=== PATIENT | female | born 1940 | race Caucasian/White ===

== ENCOUNTER 2019-05-12 16:48 | Emergency (ER) | payer MEDICARE, OTHER, SELFPAY ==
--- NOTE | ~2019-05-12 | CT_ITS ---
EXAMINATION: CT facial bones w con INDICATION: Cellulitis TECHNIQUE: Computed tomographic images of the facial bones were obtained after the administration of 75 cc of Omnipaque 350 intravenous contrast. The dose-length product (DLP) was 289.75 mGy-cm. Automat ed exposure control and iterative reconstruction technique were employed. COMPARISON: None FINDINGS: There is preseptal left periorbital soft tissue swelling. The left globe is normal. There i s no intraorbital mass or swelling. No abscess is identified. The paranasal sinuses and mastoid air c ells are well aerated. The facial bones are normal. IMPRESSION: 1. Left periorbital cellulitis without evidence of abscess. Normal left globe and orbit. Reviewed, dictated and finalized at location A. STEMMER IMPRESSION: 1. Left periorbital cellulitis without evidence of abscess. Normal left globe a nd orbit.
[2019-05-12 16:50] VITALS: BP 122/75; PULSE 118; RESP 20; TEMP 38.8; O2SAT 97
--- NOTE | 2019-05-12 16:58 | ED.ALLEREA ---
HPI - Allergic Reaction General Chief complaint: Allergic Reaction Stated complaint: facial swelling Time Seen by Provider: 05/12/19 16:57 Source: patient Mode of arrival: ambulatory Limitations: no limitations History of Present Illness HPI narrative: The pt is an 78 y/o female who presents to the ED with c/o lt facial swelling that began this morning. The pt states that she received a shingles shot 4 days ago. The following day, she went to an Urgent Care after developing fever, chills, and sweats, where she tested negative for the flu and was told that her sx could be due to a response to the shingles shot or an URI. A couple of days ago, the pt started taking a herbal supplement called Resistol that she bought online. She developed facial swelling this morning, which she has been treating with cold packs. The pt reports facial erythema, nasal congestion, fever, sweats, lower ABD pain, loose stools, facial itchiness, and pain with eye movement, but denies oral pain, dysuria, urinary frequency, urinary retention, sinus pressure, sinus drainage, sore throat, ear pressure, or cough. The pt notes that her ABD sx are probably due to her PMHx of IBS. MD complaint: facial swelling Onset (ago): hour(s) (this morning) Symptoms: other (facial erythema, nasal congestion, fever, sweats, lower ABD pain, loose stools, facial itchiness, pain with eye movement) Treatment prior to arrival: other (Resistol, cold packs) Related Data Allergies Allergy/AdvReac Type Severity Reaction Status Date / Time No Known Allergies Allergy Verified 05/12/19 17:00 Review of Systems Review of Systems: All systems reviewed & are unremarkable except as noted in HPI and below Constitutional: Constitutional: Reports fever(s) and Reports other (sweats) Eyes: Eyes: Reports other (pain with eye movement) ENT: Reports nasal congestion, Denies sinus pressure, Denies sore throat and Denies other (oral pain, sinus drainage, ear pressure) Respiratory: Respiratory: Denies cough Gastrointestinal: Gastrointestinal: Reports abdominal pain (lower) and Reports loose stools Genitourinary: Genitourinary: Denies nocturia, Denies dysuria and Denies other (urinary retention) Allergic/Immunologic: Allergic/Immunologic: Reports other (lt facial swelling, facial erythema, facial itchiness) PMFSH Past Medical History Medical History (Updated 05/12/19 @ 18:49 by Josh Sun MD) Anxiety Depression Hyperlipidemia Hypertension Irritable bowel syndrome Renal disease Surgical History Surgical History (Updated 05/12/19 @ 17:22 by Dina Tony) History of orthopedic surgery Hx of cholecystectomy Social History Social History (Updated 05/12/19 @ 17:22 by Dina Tony) Smoking status: Never smoker Exam Const: General: healthy appearing and no acute distress Nutritional Appearance: well nourished HENMT: Mouth: Yes lip normal and Yes moist mucous membranes Eyes: Conjunctivae: conjunctivae normal Pupils: Equal, round and reactive pupils present EOM: EOMs intact bilaterally Resp: Effort & Inspection: normal respiratory effort Auscultation: clear to auscultation bilaterally Cardio: Rate: regular rate Rhythm: regular rhythm GI: GI Palp: Yes Soft to palpation and No Tenderness to palpation present (GI) Auscultation: normal bowel sounds Back/Spine/Pelvis: Back: other (full ROM) Skin: General skin exam: dry skin and other (warm) Other: erythema and induration around lt maxilla Neuro: General: patient oriented x3 Speech: normal speech Extrem: General: full ROM Psych: Mental Status: mental status grossly normal Affect: normal affect Course Vital Signs Vital signs: Vital Signs Temperature 38.8 C H 05/12/19 16:50 Pulse Rate 118 H 05/12/19 16:50 Respiratory Rate 20 05/12/19 16:50 Blood Pressure 122/75 05/12/19 16:50 Pulse Oximetry 97 05/12/19 16:50 Temperature 37.2 C 05/12/19 19:14 Pulse Rate 80 05/12/19 19:
[2019-05-12] MEDS: CLINDAMYCIN 600 MG/NS 50 ML 600 MG/50 ML PIGGYBACK 100 MG IVPB (17:30)
[2019-05-12 17:41] LABS: Basophils Percent Auto 0.4 % (0.2-1.2); Eosinophils Percent Auto 0.1 % (0-4.4); Hematocrit 42.5 % (37.0-47.0); Hemoglobin 13.9 g/dL (12.0-15.0); Immature Granulocyte Absolute 0.05 K/mm3 (0.00-0.031); Immature Granulocyte Percent A 0.4 % (0-0.5); Lymphocytes Absolute Auto 1.05 K/mm3 (0.9-3.2); Lymphocytes Percent Auto 9.3 % (18.3-44.2); Mean Corpuscular HGB Conc 32.7 g/dl (32-36); Mean Corpuscular Hemoglobin 30.2 pg (26-34); Mean Corpuscular Volume 92.2 fl (80-100); Mean Platelet Volume 9.7 fl (7.4-10.4); Monocytes Absolute Auto 1.1 K/mm3 (0.1-0.6); Monocytes Percent Auto 9.6 % (2.6-8.5); Neutrophils Absolute Auto 9.1 K/mm3 (1.3-6.7); Neutrophils Percent Auto 80.2 % (45.5-73.1); Platelet Count Result 199 k/mm3 (150-375); Red Blood Count 4.61 M/mm3 (4.2-5.4); Red Cell Distribution Width 13.1 % (11.5-14.5); White Blood Count 11.3 K/mm3 (4.5-10.0)
[2019-05-12 17:53] LABS: Blood Urea Nitrogen 16 mg/dL (7-17); Calcium 9.2 mg/dL (8.4-10.2); Carbon Dioxide 26 mmol/L (22-30); Chloride 98 mmol/L (98-107); Estimated CRCL calculation 40 ml/min; Estimated Glomerular Filt Rate > 60; Glucose 111 mg/dL (65-105); Potassium 4.2 mmol/L (3.4-5.0); Sodium 136 mmol/L (137-145)
[2019-05-12 19:14] VITALS: BP 120/88; PULSE 80; RESP 18; TEMP 37.2; O2SAT 98
--- NOTE | 2019-07-01 10:51 | PC.NURSE ---
LATE ENTRY This note is being entered to document information to the patient's record. The following information was omitted on 05/12/2019, by HUNG Dubon. Pt received clindamycin dose per order and completed 30 min after initiation.
== END 2019-05-12 19:16 | disposition home or self-care (01) ==
PROVIDERS: Emergency Provider Emergency Medicine
DX: L03.213 Periorbital cellulitis (principal); K58.9 Irritable bowel syndrome, unspecified; E78.5 Hyperlipidemia, unspecified; I10 Essential (primary) hypertension; N28.9 Disorder of kidney and ureter, unspecified
CPT/HCPCS: 36415; 70487; 80048; 85025; 96365; 99284; Q9967

== ENCOUNTER → 2021-01-15 11:19 | Outpatient (CLI) | payer MEDICARE, OTHER, SELFPAY ==
--- NOTE | ~2021-01-15 | MM_ITS ---
EXAMINATION: MM screening [facility] BI w rama HISTORY: Screening mammogram TECHNIQUE: Craniocaudal and mediolateral oblique 3-D tomosynthesis images were obtained and synthetic 2-D images were generated. CAD analysis was submitted and interpreted. COMPARISON: 01/01/2019, 12/29/2016, 12/05/2014 BREAST PARENCHYMAL COMPOSITION: The breasts are heterogeneously dense, which may obscure small masses . FINDINGS: There is no evidence of suspicious mass, calcification, or architectural distortion to sugg est malignancy in either breast. There has been no suspicious interval change. IMPRESSION: 1. No mammographic evidence of malignancy. 2. Recommend routine screening mammography in one year. BI-RADS Category 1: Negative Reviewed, dictated and finalized at location A.
== END ==
PROVIDERS: PCP Internal Medicine; Visit Provider Internal Medicine
DX: Z12.31 Encounter for screening mammogram for malignant neoplasm of breast (principal)
CPT/HCPCS: 77063; 77067

== ENCOUNTER 2021-06-30 13:55 | Emergency (ER) | payer MEDICARE, OTHER, SELFPAY ==
[2021-06-30] VITALS (12 sets, daily range): BP systolic 139–163; BP diastolic 84–92; PULSE 72–87; RESP 9–20; TEMP 36.8; O2SAT 97–99
--- NOTE | ~2021-06-30 | CT_ITS ---
EXAMINATION: CT brain wo con DATE: 06/30/2021 15:01 INDICATION: Dizziness TECHNIQUE: Computed tomography (CT) of the head was performed without intravenous contrast. Sagittal and coronal reconstructions were performed. The mA was adjusted according to patient size. Iterative reconstruction technique was employed. The dose-length product was 605.33 mGy-cm. COMPARISON: None FINDINGS: No acute intracranial hemorrhage, acute infarction or abnormal extra axial fluid collection. There is mild scattered white matter hypoattenuation consistent with chronic small vessel ischemic disease. V entricles are normal and symmetric. No mass/mass effect. The orbits, paranasal sinuses and mastoid ai r cells are normal. IMPRESSION: 1. Mild periventricular predominant white matter hypoattenuation consistent with chronic small vessel ischemic disease. No acute intracranial process. Reviewed, dictated and finalized at location B. IMPRESSION: 1. Mild periventricular predominant white matter hypoattenuation consistent wit h chronic small vessel ischemic disease. No acute intracranial process.
--- NOTE | 2021-06-30 14:07 | PC.NURSE ---
pt reporting hx of anxiety and being upset by a remark her made last night about him dying first . pt tearful in triage.
--- NOTE | 2021-06-30 14:31 | ECG_ITS ---
Measurements Intervals [place] Rate: 80 P: 23 MD: 152 QRS: -21 QRSD: 76 T: 17 QT: 351 QTc: 406 Interpretive Statements SINUS RHYTHM LOW QRS VOLTAGE IN PRECORDIAL LEADS [QRS DEFLECTION < 1.0 mV IN CHEST LEADS] POOR R-WAVE PROGRESSION, CANNOT RULE OUT OLD ANTEROSEPTAL MYOCARDIAL INFARCTION NO PREVIOUS ECG AVAILABLE FOR COMPARISON Electronically Signed On 06-30-2021 21:19:50 CDT by Lauren Thorne M.D.
[2021-06-30 14:50] LABS: Basophils Absolute Auto 0.1 K/mm3 (0.0-0.1); Basophils Percent Auto 0.9 % (0.2-1.2); Eosinophils Absolute Auto 0.2 K/mm3 (0-0.3); Eosinophils Percent Auto 2.1 % (0-4.4); Hematocrit 47.2 % (37.0-47.0); Immature Granulocyte Absolute 0.03 K/mm3 (0.00-0.031); Immature Granulocyte Percent A 0.3 % (0-0.5); Lymphocytes Absolute Auto 2.06 K/mm3 (0.9-3.2); Lymphocytes Percent Auto 22.5 % (18.3-44.2); Mean Corpuscular HGB Conc 31.8 g/dl (32-36); Mean Corpuscular Hemoglobin 30.3 pg (26-34); Mean Corpuscular Volume 95.4 fl (80-100); Mean Platelet Volume 9.3 fl (7.4-10.4); Monocytes Absolute Auto 0.8 K/mm3 (0.1-0.6); Monocytes Percent Auto 8.4 % (2.6-8.5); Neutrophils Percent Auto 65.8 % (45.5-73.1); Platelet Count Result 246 k/mm3 (150-375); Red Blood Count 4.95 M/mm3 (4.2-5.4); Red Cell Distribution Width 13.1 % (11.5-14.5); White Blood Count 9.2 K/mm3 (4.5-10.0)
[2021-06-30 15:03] LABS: Alanine Aminotransferase 22 U/L (4-35); Albumin Level 4.5 g/dL (3.5-5.1); Alkaline Phosphatase 70 U/L (38-126); Anion Gap 6 mmol/L (8-16); Aspartate Amino Transferase 30 U/L (14-36); Bilirubin,Total 0.6 mg/dL (0.2-1.3); Blood Urea Nitrogen 20 mg/dL (7-17); Calcium 9.3 mg/dL (8.4-10.2); Carbon Dioxide 29 mmol/L (22-30); Chloride 104 mmol/L (98-107); Estimated CRCL calculation 35 ml/min; Estimated Glomerular Filt Rate 60; Glucose 109 mg/dL (65-110); Potassium 3.9 mmol/L (3.4-5.0); Sodium 139 mmol/L (137-145)
[2021-06-30 15:14] LABS: NT Pro B Type Natriuretic Pept 143 pg/mL (5-100)
[2021-06-30 15:33] LABS: Troponin I < 0.012 ng/mL (0.000-0.034)
--- NOTE | 2021-06-30 16:38 | ED.GENADULT ---
HPI - General Adult General Chief complaint: Anxiety Stated complaint: dizzy Time Seen by Provider: 06/30/21 14:32 Source: patient Mode of arrival: ambulatory Limitations: no limitations History of Present Illness HPI narrative: 80-year-old with a history of hyperlipidemia, anxiety here with complaints of sudden onset of dizziness heaviness in her right side of her head. Patient states that she was driving along with her while she was taking a turn she felt sudden dizziness and heaviness in the chest. She states that she felt extremely anxious and did not feel right. Patient presently denies any chest pain, shortness of breath. She states her first lot of stress been going on in her life in the recent past. Onset (ago): hour(s) (1) Location: head Radiation: non-radiation Severity: moderate Quality: dull Pain Consistency: now resolved Relieving factors: none Exacerbating factors: none Associated symptoms: headaches Related Data Home Medications Medication Instructions Recorded Confirmed atorvastatin 06/30/21 valacyclovir 06/30/21 06/30/21 Allergies Allergy/AdvReac Type Severity Reaction Status Date / Time No Known Allergies Allergy Verified 06/30/21 14:30 Review of Systems Review of Systems: All systems reviewed & are unremarkable except as noted in HPI and below Constitutional: Constitutional: Reports no additional constitutional complaints Eyes: Eyes: Reports no additional eye complaints ENT: Reports system reviewed and no additional complaints, except as documented Cardiovascular: Cardiovascular: Reports no additional cardiovascular complaints Respiratory: Respiratory: Reports no additional respiratory complaints Gastrointestinal: Gastrointestinal: Reports no additional gastrointestinal complaints Musculoskeletal: Musculoskeletal: Reports no additional musculoskeletal complaints Neurologic: Reports as per HPI Psychiatric: Psychiatric: Reports no additional psychiatric complaints PMFSH Past Medical History Medical History Anxiety Depression Hyperlipidemia Hypertension Irritable bowel syndrome Renal disease Surgical History Surgical History History of orthopedic surgery Hx of cholecystectomy Social History Social History Smoking status: Never smoker Exam Narrative: GENERAL: Well-appearing, well-nourished, and in no acute distress. HEAD: Normocephalic, atraumatic. EYES: PERRLA and EOMI. NECK: Supple. CHEST: Clear to auscultation. No respiratory distress. HEART: Regular rate and rhythm. No murmur heard. Normal peripheral pulses. ABDOMEN: Soft, nontender, nondistended, normal active bowel sounds. EXTREMITIES: Normal range of motion. No edema. SKIN: Warm, dry, no rash. NEURO: No focal deficits. Alert and oriented x3. PSYCH: Normal mood and affect. Course Course Emergency Course: Patient upon arrival to the ER was feeling much better. She denied any other symptoms. Her work-up was essentially unremarkable informed her about her lab work, CT findings. She feels absolutely fine to go home Vital Signs Vital signs: Vital Signs Temperature 36.8 C 06/30/21 13:59 Pulse Rate 81 06/30/21 13:59 Respiratory Rate 18 06/30/21 13:59 Blood Pressure 146/92 H 06/30/21 13:59 Pulse Oximetry 99 06/30/21 13:59 Temperature 36.8 C 06/30/21 13:59 Pulse Rate 81 06/30/21 15:48 Respiratory Rate 11 L 06/30/21 15:48 Blood Pressure 157/84 H 06/30/21 15:48 Pulse Oximetry 97 06/30/21 15:48 Medical Decision Making Differential Diagnosis Differential Diagnosis: Anxiety, headache, migraine Medical Records Medical records reviewed: Yes I reviewed the external patient's medical records. Vital Signs Vital Signs: Vital Signs Temperature 36.8 C 06/30/21 13:59 Pulse Rate 81 06/30/21 13:59 Resp
== END 2021-06-30 17:18 | disposition home or self-care (01) ==
PROVIDERS: Emergency Provider Family Medicine; PCP Internal Medicine
DX: F41.9 Anxiety disorder, unspecified (principal); I10 Essential (primary) hypertension; E78.5 Hyperlipidemia, unspecified; N28.9 Disorder of kidney and ureter, unspecified; K58.9 Irritable bowel syndrome, unspecified; F32.A Depression, unspecified; R94.31 Abnormal electrocardiogram [ECG] [EKG]
CPT/HCPCS: 36415; 70450; 80053; 83880; 84484; 85025; 93005; 99284

== ENCOUNTER 2022-04-26 13:26 | Outpatient (CLI) | payer MEDICARE, OTHER, SELFPAY ==
--- NOTE | 2022-04-26 | ECHO_ITS ---
Patient Info Name: Lois Berg Age: 81 years : 1940 Gender: Female Ht: 63 in Wt: 135 lbs BSA: 1.66 m2 HR: 90 bpm BP: 153 / 86 mmHg Heart Rhythm: Sinus Rhythm Technical Quality: Fair Exam Date: 04/26/2022 1:41 PM Exam Location: [facility] Pulmonary Patient Status: Outpatient Admit Date: 04/26/2022 Staff Ordering Physician: Emam*Socorro MD Manager Highway: Malou Hollis RDCS Attending Provider: Narinder, Socorro Matamoros MD Referring Physician: Brooke SAWYER; Exam Type: CA echo doppler color flow Study Info Indications I35.0 - Nonrheumatic aortic (valve) stenosis Complete two-dimensional, color flow and Doppler transthoracic echocardiogram is performed. Strain analysis performed. Summary 1. Complete two-dimensional, color flow and Doppler transthoracic echocardiogram is performed. 2. Left ventricular chamber dimension is normal. 3. Left ventricular systolic function is normal, estimated at >70%. 4. There is mildly increased left ventricular wall thickness. 5. The left ventricular diastolic function is grade I diastolic dysfunction. 6. Global longitudinal strain is abnormal at -15 %. 7. Right ventricular chamber dimension is mildly enlarged. 8. Left atrial chamber dimension is mildly enlarged. 9. Right atrial chamber dimension is mildly enlarged. 10. There is moderate to severe aortic valve stenosis with a peak velocity of 328 cm/s, mean gradient of 27 mmHg, and aortic valve area of 1.0 cm2. 11. There is severe aortic valve calcification. 12. The mitral valve annulus is mildly calcified. 13. The mitral valve has thickened leaflets. 14. There is moderate tricuspid valve regurgitation. 15. Mild pulmonary hypertension, estimated pulmonary arterial systolic pressure is 43 mmHg. 16. There is mild pulmonic regurgitation. 17. Strain analysis performed. Left Ventricle Left ventricular chamber dimension is normal. Left ventricular systolic function is normal, estimated at >70%. There is mildly increased left ventricular wall thickness. The left ventricular diastolic function is grade I diastolic dysfunction. Global longitudinal strain is abnormal at -15 %. Right Ventricle Right ventricular chamber dimension is mildly enlarged. Right ventricular systolic function is normal. Left Atria Left atrial chamber dimension is mildly enlarged. Right Atria Right atrial chamber dimension is mildly enlarged. Aortic Valve The aortic valve is probable trileaflet. There is moderate to severe aortic valve stenosis with a peak velocity of 328 cm/s, mean gradient of 27 mmHg, and aortic valve area of 1.0 cm2. There is trace aortic valve regurgitation. There is severe aortic valve calcification. Pulmonic Valve The pulmonic valve is normal. There is no pulmonic valve stenosis. There is mild pulmonic regurgitation. Mitral Valve The mitral valve has thickened leaflets. There is no mitral valve stenosis. There is trace mitral valve regurgitation. The mitral valve annulus is mildly calcified. Tricuspid Valve The tricuspid valve leaflets are normal. There is no significant tricuspid valve stenosis. There is moderate tricuspid valve regurgitation. Mild pulmonary hypertension, estimated pulmonary arterial systolic pressure is 43 mmHg. Pericardium/Pleural The pericardium appears normal. There is no pericardial effusion. Inferior Vena Cava Normal inferior vena cava with >50% collapse upon inspiration consistent with normal right atrial pressure, 10 m
== END 2022-04-26 13:27 | disposition home or self-care (01) ==
LOC: ANHCARD 13:28
PROVIDERS: PCP Internal Medicine; Visit Provider Internal Medicine
DX: I35.0 Nonrheumatic aortic (valve) stenosis (principal); I07.1 Rheumatic tricuspid insufficiency; I37.1 Nonrheumatic pulmonary valve insufficiency
CPT/HCPCS: 93306

== ENCOUNTER 2022-06-19 08:07 | Observation (INO) | payer MEDICARE, OTHER, SELFPAY ==
[2022-06-19] VITALS (21 sets, daily range): BP systolic 113–158; BP diastolic 68–120; PULSE 87–109; RESP 14–117; TEMP 36.2–36.8; O2SAT 93–100
--- NOTE | ~2022-06-19 | XR_ITS ---
EXAMINATION: XR chest 1V portable INDICATION: Shortness of breath TECHNIQUE: Portable AP chest at 0820 hours COMPARISON: None available FINDINGS: The patient is rotated. There are minimal airspace opacities of the lung bases. No pleural effusion or pneumothorax identified. The heart size is normal. IMPRESSION: 1. Minimal bibasilar airspace opacities, consistent with atelectasis versus pneumonia. Reviewed, dictated and finalized at location A. IMPRESSION: 1. Minimal bibasilar airspace opacities, consistent with atelectasis versus pne umonia.
--- NOTE | ~2022-06-19 | CT_ITS ---
EXAMINATION: CTA chest PE protocol DATE: 06/19/2022 13:49 INDICATION: Shortness of breath and midsternal chest pain TECHNIQUE: Computed tomography angiography (CTA) of the chest was performed with 100 mL Omnipaque-350 intravenous contrast timed to evaluate the pulmonary arteries. Coronal maximum intensity projection 3D-reconstructions were created by the technologist. The dose-length product (DLP) was 186.50 mGy-cm. Automated exposure control and iterative reconstruction technique were employed. COMPARISON: None. FINDINGS: The pulmonary arteries are well-opacified. No pulmonary embolism is identified. There is mi ld atelectasis of the lower lobes and right middle lobe. No pleural effusion or pneumothorax. No path ologically enlarged thoracic lymph nodes are identified. The heart size is normal. There is moderate thoracic spondylosis. IMPRESSION: 1. No pulmonary embolus identified. 2. Mild atelectasis of the lower lobes and right middle lobe. Reviewed, dictated and finalized at location A.
--- NOTE | 2022-06-19 08:11 | ECG_ITS ---
Measurements Intervals [place] Rate: 97 P: 30 [place]: 137 QRS: -33 QRSD: 83 T: 16 QT: 328 QTc: 418 Interpretive Statements SINUS RHYTHM BORDERLINE R WAVE PROGRESSION, ANTERIOR LEADS CONSIDER INFERIOR INFARCT, AGE INDETERMINATE BASELINE ARTIFACT- I, II, AVR ABNORMAL ECG COMPARED TO ECG 06/30/2021 14:36:18 NO SIGNIFICANT CHANGES Electronically Signed On 06-19-2022 15:45:13 CDT by Camilo Marshall D.O.
--- NOTE | 2022-06-19 08:37 | ED.SOB ---
HPI - SOB/Dyspnea General Chief Complaint: Shortness of Breath/Dyspnea Stated Complaint: think i have pneumonia Time Seen by Provider: 06/19/22 08:27 Source: patient and family Mode of arrival: ambulatory Limitations: no limitations History of Present Illness HPI Narrative: 81 years old white female came to the emergency room by private car complaining of sudden onset of retrosternal pain started at 7 PM last night while sitting watching TV. Aching. 10 out of 10. No radiation. Slightly better in sitting position and bending forward, worse laying down flat. Patient could not sleep all night long. Currently her pain is 2 out of 10. Patient reports that the pain gets better leaning forward sitting up adjusting position, get worse sometimes with certain position. Patient reported that she could not get comfortable she could not breathe 4 hours. She denies any fever, chills, nausea, vomiting, back pain or abdominal pain. History of hyperlipidemia and cholecystectomy. Related Data Home Medications Medication Instructions Recorded Confirmed atorvastatin 10 mg tablet 06/30/21 valacyclovir 500 mg tablet 06/30/21 06/30/21 Allergies Allergy/AdvReac Type Severity Reaction Status Date / Time No Known Allergies Allergy Verified 06/19/22 08:30 Review of Systems Review of Systems: All systems reviewed & are unremarkable except as noted in HPI and below PMFSH Past Medical History Medical History Anxiety Depression Hyperlipidemia Hypertension Irritable bowel syndrome Renal disease Surgical History Surgical History History of orthopedic surgery Hx of cholecystectomy Social History Social History Smoking status: Never smoker Exam Narrative: General appearance: Well-developed, well-nourished Skin: Normal color Head: Normocephalic, nontraumatic Eyes: Clear conjunctiva ENT: Oropharynx normal, ears normal, nose normal Neck: Supple, nontender Chest and respiratory: Airway patent, no respiratory distress, no accessory muscle use Heart: Regular rate/rhythm Abdomen: Soft, tender epigastric, no organomegaly, quiet bowel sounds Vascular: Normal peripheral pulses, normal capillary refill. Musculoskeletal: Normal range of motion, nontender back Neurologic: Alert and oriented ?3, MANAGER OF SELECTION AND ASSESSMENT is normal as tested, no gross motor deficit Course Vital Signs Vital signs: Vital Signs Temperature 36.8 C 06/19/22 08:08 Pulse Rate 101 H 06/19/22 08:08 Respiratory Rate 117 H 06/19/22 08:08 Blood Pressure 142/94 H 06/19/22 08:08 Pulse Oximetry 96 06/19/22 08:08 Temperature 36.8 C 06/19/22 08:08 Pulse Rate 96 06/19/22 08:28 Respiratory Rate 18 06/19/22 08:28 Blood Pressure 142/94 H 06/19/22 08:28 Pulse Oximetry 96 06/19/22 08:28 Oxygen Delivery Room Air 06/19/22 08:14 MDM - SOB/Dyspnea MDM Narrative Medical decision making narrative: Patient presents with retrosternal chest pain, worse laying down flat, better sitting up and bending forward seems like pericarditis, Differential diagnosis coronary artery disease, pericarditis, pleurisy, pneumonia, pulmonary embolism. Work-up today showed elevated white count of 13.7 with left shift, normal D-dimer, normal troponin x2, saturation on room air 95.5, CRP of 3.3, sed rate more than 60 negative influenza, COVID and RSV. Chest x-ray showed basal atelectasis versus pneumonia, EKG showed normal sinus rhythm without acute abnormalities.. Patient does not have any coughing or shortness of breath. Coronary artery disease, p
[2022-06-19 08:45] LABS: Basophils Absolute Auto 0.1 K/mm3 (0.0-0.1); Basophils Percent Auto 0.4 % (0.2-1.2); Eosinophils Absolute Auto 0.1 K/mm3 (0-0.3); Eosinophils Percent Auto 0.7 % (0-4.4); Hematocrit 44.8 % (37.0-47.0); Hemoglobin 14.3 g/dL (12.0-15.0); Immature Granulocyte Percent A 1.5 % (0-0.5); Lymphocytes Absolute Auto 1.12 K/mm3 (0.9-3.2); Lymphocytes Percent Auto 8.2 % (18.3-44.2); Mean Corpuscular HGB Conc 31.9 g/dl (32-36); Mean Corpuscular Hemoglobin 29.5 pg (26-34); Mean Corpuscular Volume 92.6 fl (80-100); Mean Platelet Volume 9.7 fl (7.4-10.4); Monocytes Absolute Auto 1.3 K/mm3 (0.1-0.6); Monocytes Percent Auto 9.6 % (2.6-8.5); Neutrophils Absolute Auto 10.9 K/mm3 (1.3-6.7); Neutrophils Percent Auto 79.6 % (45.5-73.1); Platelet Count Result 236 k/mm3 (150-375); Red Blood Count 4.84 M/mm3 (4.2-5.4); Red Cell Distribution Width 13.9 % (11.5-14.5); White Blood Count 13.7 K/mm3 (4.5-10.0)
[2022-06-19 09:02] LABS: Alveolar/Arterial O2 Gradient 19.8 mmHg; Base Excess ABG 5.4 mEq/l (+/-2.0); Device ROOM AIR; Fractional Inspired Oxygen 21 %; HCO3 ABG 30.3 mEq/l (22.0-26.0); Modified Allen's Test Pass; Oxygen Content ABG 19.4 %vol (16.0-22.0); Oxygen Saturation ABG 95.5 % (95.0-100.0); Oxyhemoglobin 93.9 % THb (90.0-100.0); PCO2 ABG 45.5 mmHg (35.0-45.0); PO2 ABG 75.4 mmHg (80.0-100.0); PO2 FiO2 Ratio Arterial Blood 3.59 %; Site Drawn RIGHT RADIAL; Total Hemoglobin 14.7 g/dL (12.0-18.0); pH ABG 7.442 (7.350-7.450)
[2022-06-19 09:05] LABS: Partial Thromboplastin Time 27.2 SECONDS (22.3-36.8); Prothrombin Time 12.7 Seconds (11.1-14.7)
[2022-06-19 09:10] LABS: Alanine Aminotransferase 25 U/L (6-35); Albumin Level 4.3 g/dL (3.5-5.1); Alkaline Phosphatase 70 U/L (38-126); Anion Gap 3 mmol/L (8-16); Aspartate Amino Transferase 27 U/L (14-36); Bilirubin,Total 1.3 mg/dL (0.2-1.3); Blood Urea Nitrogen 14 mg/dL (7-17); Calcium 9.4 mg/dL (8.4-10.2); Carbon Dioxide 32 mmol/L (22-30); Chloride 106 mmol/L (98-107); D Dimer 0.46 ug/mL (<0.48); Estimated CRCL calculation 38 ml/min; Estimated Glomerular Filt Rate > 60; Glucose 118 mg/dL (65-110); Magnesium 1.9 mg/dL (1.6-2.3); Potassium 4.2 mmol/L (3.4-5.0); Sodium 141 mmol/L (137-145)
[2022-06-19 09:21] LABS: NT Pro B Type Natriuretic Pept 299 pg/mL (19.9-100); Troponin I < 0.012 ng/mL (0.000-0.034)
[2022-06-19 09:31] LABS: Influenza A QL RT-PCR Negative (Negative); Influenza B QL RT-PCR Negative (Negative); RSV RNA, RT-PCR Negative (Negative); SARS-CoV-2 RNA PCR Negative
[2022-06-19 09:46] LABS: CRP 3.3 mg/dL (<1.0); Lipase 65 U/L (23-300)
[2022-06-19 10:54] LABS: Amphetamine Screen Urine Negative (Negative); Barbiturate Screen Urine Negative (Negative); Benzodiazepines Screen Urine Negative (Negative); Cannabinoid Screen Urine Negative (Negative); Cocaine Screen Urine Negative (Negative); Methadone Screen Urine Negative (Negative); Opiate Screen Urine Negative (Negative); Phencyclidine Screen Urine Negative (Negative)
[2022-06-19 10:59] LABS: Erythrocyte Sedimentation Rate 15 mm/hr (0-20)
[2022-06-19] MEDS: BELLADONNA ALK/PHENOB ELIX 10 ML, MAG HYDROX/ALUMINUM HYD/SIMETH 30 ML, LIDOCAINE HCL 2... PO (11:18)
--- NOTE | 2022-06-19 13:25 | PM.IMHP ---
H&P: HPI History of Present Illness Date/Time: 06/19/22 13:25 Chief Complaint: Shortness of breath Narrative: This is an 81-year-old female patient who came to the emergency room complaining of a sudden onset of retrosternal pain that started at 7:00 a.m. last night. When she was watching TV. She stated that her pain was 10/10. The patient stated that it hurts worse when she takes a deep breath. She feels better when she is in a sitting position and bending forward. It is worse when she lays flat. The patient stated could she could not sleep all night long. She still continues to have pain 2/10. She denies any fever chills or any nausea vomiting or diarrhea. Her white count is 13.7. The patient denies any coughing. Her CRP is 3.3. BNP is only 299. She is negative for influenza A/B and COVID as well as RSV. Chest x-ray was read as minimal bibasilar airspace opacities consistent with atelectasis versus pneumonia. CTA was read as no pulmonary embolus identified. Mild atelectasis of the lower lobes and right middle lobe. The patient was given a GI cocktail and tramadol. Troponin is nonreactive x2. EKG is sinus rhythm borderline R-wave progression. No changes since her last EKG. The patient is being admitted to observation status on the date of service of 06/19/2022. Review of Systems Review of Systems: All systems reviewed & are unremarkable except as noted in HPI and below Constitutional: Constitutional: Reports as per HPI and Reports no additional constitutional complaints Eyes: Eyes: Reports as per HPI and Reports no additional eye complaints ENT: Reports system reviewed and no additional complaints, except as documented and Reports Normal hearing present Cardiovascular: Cardiovascular: Reports no additional cardiovascular complaints Respiratory: Respiratory: Reports no additional respiratory complaints and Reports no additional respiratory complaints Gastrointestinal: Gastrointestinal: Reports as per HPI and Reports no additional gastrointestinal complaints Musculoskeletal: Musculoskeletal: Reports no additional musculoskeletal complaints Integumentary/Breasts: Skin/Breast: Reports system reviewed and no additional complaints, except as docu and Reports as per HPI Neurologic: Reports system reviewed and no additional complaints, except as documented, Reports as per HPI and Reports Normal hearing present Psychiatric: Psychiatric: Reports no additional psychiatric complaints and Reports as per HPI Endocrine: Endocrine: Reports no additional endocrine complaints Hematologic/Lymphatic: Hematologic/Lymphatic: Reports no additional hematologic/lymphatic complaints Allergic/Immunologic: Allergic/Immunologic: Reports no additional allergic/immunologic complaints [facility] Past Medical History Medical History Anxiety Depression Hyperlipidemia Hypertension Irritable bowel syndrome Renal disease Severe aortic stenosis Surgical History Surgical History H/O repair of rotator cuff History of orthopedic surgery Hx of cholecystectomy Family History Family History Father Acute myocardial infarction Mother Tao palsy Grandparent Cerebrovascular accident Son Cancer Social History Social History (Updated 06/19/22 @ 16:56 by Vanita Hand NP) Social History: She lives with her . She had 3 children but now only has the 2 children. 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 code Smoking status: Never smoker Alcohol intake: current Substance use: never Lack of Transportation: No Lack of Food: Never True Current Housing: I Have Housing Concerned About Future Housing: No Difficulty Paying Gas/Electric Bills: No Difficulty Paying for Meds: No Currently Unemployed: No Education: Bachelor's Degree Difficulty w/ Childcare or
[2022-06-19] MEDS: traMADol HCL (*CRX) 50 MG TABLET PO (14:51)
--- NOTE | 2022-06-19 16:49 | PC.NURSE ---
This patient, Lois Berg, was admitted to IMU Room 205-01. Patient/family oriented to hospital policies and general routines including ID bracelet, bed and alarms, visiting hours, pain management, procedures, bathroom and other care routines, personal items, smoking policy, room service/diet, and visiting hours. Information on how to activate the Rapid Response Team has been discussed. Patient/Family are encouraged to report perceived risks to care and to ask questions if they do not understand what they are told or what they should do.
[2022-06-19 17:47] LABS: Troponin I < 0.012 ng/mL (0.000-0.034)
[2022-06-19] MEDS: ATORVASTATIN 10 MG TABLET PO (21:22)
[2022-06-19] MEDS: FAMOTIDINE 20 MG/2 ML VIAL IV PUSH (21:22)
[2022-06-20] VITALS (8 sets, daily range): BP systolic 104–131; BP diastolic 67–70; PULSE 82–96; RESP 14–20; TEMP 36.1–36.6; O2SAT 94–96
[2022-06-20 05:35] LABS: Basophils Absolute Auto 0.1 K/mm3 (0.0-0.1); Basophils Percent Auto 0.5 % (0.2-1.2); Eosinophils Absolute Auto 0.1 K/mm3 (0-0.3); Hematocrit 40.6 % (37.0-47.0); Hemoglobin 13.2 g/dL (12.0-15.0); Immature Granulocyte Absolute 0.07 K/mm3 (0.00-0.031); Immature Granulocyte Percent A 0.6 % (0-0.5); Lymphocytes Absolute Auto 1.72 K/mm3 (0.9-3.2); Lymphocytes Percent Auto 13.6 % (18.3-44.2); Mean Corpuscular HGB Conc 32.5 g/dl (32-36); Mean Corpuscular Hemoglobin 29.7 pg (26-34); Mean Corpuscular Volume 91.4 fl (80-100); Mean Platelet Volume 9.7 fl (7.4-10.4); Monocytes Absolute Auto 1.4 K/mm3 (0.1-0.6); Monocytes Percent Auto 10.6 % (2.6-8.5); Neutrophils Absolute Auto 9.4 K/mm3 (1.3-6.7); Neutrophils Percent Auto 73.7 % (45.5-73.1); Platelet Count Result 216 k/mm3 (150-375); Red Blood Count 4.44 M/mm3 (4.2-5.4); White Blood Count 12.7 K/mm3 (4.5-10.0)
[2022-06-20 05:47] LABS: Lactic Acid Reflex 0.7 mmol/L (0.7-2.0)
[2022-06-20 05:49] LABS: Alanine Aminotransferase 22 U/L (6-35); Albumin Level 3.7 g/dL (3.5-5.1); Alkaline Phosphatase 60 U/L (38-126); Anion Gap 4 mmol/L (8-16); Aspartate Amino Transferase 24 U/L (14-36); Bilirubin,Total 1.4 mg/dL (0.2-1.3); Blood Urea Nitrogen 12 mg/dL (7-17); Calcium 8.7 mg/dL (8.4-10.2); Carbon Dioxide 31 mmol/L (22-30); Chloride 103 mmol/L (98-107); Estimated CRCL calculation 38 ml/min; Estimated Glomerular Filt Rate > 60; Glucose 102 mg/dL (65-110); Lipase 47 U/L (23-300); Sodium 138 mmol/L (137-145)
[2022-06-20 06:01] LABS: CRP 15.7 mg/dL (<1.0)
[2022-06-20] MEDS: FAMOTIDINE 20 MG/2 ML VIAL IV PUSH (08:51)
[2022-06-20] MEDS: ENOXAPARIN 40 MG/0.4 ML SYRINGE SUB-Q (08:51)
[2022-06-20] MEDS: ASPIRIN 81 MG CHEWABLE TABLET PO (08:51)
[2022-06-20] MEDS: valACYclovir HCL 500 MG TABLET PO (08:51)
--- NOTE | 2022-06-20 10:22 | ECG_ITS ---
Measurements Intervals [place] Rate: 89 P: 26 [place]: 137 QRS: -7 QRSD: 101 T: 31 QT: 361 QTc: 440 Interpretive Statements SINUS RHYTHM DELAYED PRECORDIAL R/S TRANSITION CONSIDER INFERIOR INFARCT, AGE INDETERMINATE ABNORMAL ECG COMPARED TO ECG 06/19/2022 08:18:23 NO SIGNIFICANT CHANGES Electronically Signed On 06-20-2022 10:48:13 CDT by Camilo Marshall D.O.
--- NOTE | 2022-06-20 10:40 | PM.CNCAR ---
Assessment and Plan Assessment and plan (1) Chest pain: Code(s): R07.9 - Chest pain, unspecified Status: Acute Plan This is an 81-year-old lady who appears to have been have been admitted yesterday with an episode of musculoskeletal chest wall pain. There was some concern about pericarditis based on the nature of the symptoms. There is no objective evidence of pericarditis on her exam or on her electrocardiogram. The symptom has markedly improved compared to yesterday. She does continue to have asymptomatic aortic valve stenosis which we have follow-up scheduled in the office. She will be seen later in the summer for longitudinal follow-up for aortic valve disease. It is clear to me that this is chest wall pain has nothing to do with her aortic valve disease. From my perspective she can be discharged for outpatient follow-up if you have questions regarding this opinion please let me know César Orourke MD [facility] History of Present Illness History of Present Illness Consult date/time: 06/20/22 10:40 Consult reason: chest pain Reason For Visit: chest pain Narrative: This is a pleasant 81-year-old lady who has aortic valve stenosis who I have no from office follow-up. I have seeing her today at the request of the hospitalist after she was admitted from the emergency room yesterday. The patient was in her usual state of good health when yesterday she noted the sudden onset of chest pain she describes a very atypical type of pain that was positional worse with the supine position better with sitting up and leaning forward and much worse if she would take breaths in and out with respiratory effort she noted the pain got significantly worse she came to the emergency room yesterday with the symptoms and was evaluated and. There were no cardiac findings of concern other than her aortic valve murmur. She was admitted to the hospital for observation overnight. The clinical impression was that she might have pericarditis. The electrocardiograms on her chart do not show any findings consistent with pericarditis I had another ECG run this morning and remains free of any changes of pericarditis. She says that the symptoms she came in with has markedly improved she was given an anti-inflammatory medication in the emergency room some orders were placed on the chart for p.r.n. ibuprofen but she has not taken any of it she says the pain at this point is very mild and dull if she takes a deep breath she feels a little bit of it but other than that she is quite comfortable. Her cardiac biomarkers with troponin levels are negative. She offers no other complaints at this time. This is a lady that I have been following in the office for a couple of years or so because of aortic stenosis which has been and appears remains asymptomatic. Her aortic valve disease in the past was mild and there was some echocardiographic progression in her aortic valve disease with a valve area of 1.0 last year. I saw her in the office last in April of this year at which time she was still asymptomatic. Six-month follow-up appointments were scheduled. She is not having any exertional symptomatology such as shortness of breath or chest pain she has never had a syncopal episode. Not experiencing palpitations orthopnea PND or accumulating edema. Review of Systems Constitutional: Constitutional: Reports no additional constitutional complaints Eyes: Eyes: Reports no additional eye complaints ENT: Reports system reviewed and no additional complaints, except as documented Cardiovascular: Cardiovascular: Reports as per HPI Respiratory: Respiratory: Reports no additional respiratory complaints Gastrointestinal: Gastrointestinal: Reports no additional gastrointestinal complaints Musculoskeletal: Musculoskeletal: Reports no additional musculoskeletal complaints Integumentary/Breasts: Skin/Breast: Reports system reviewed and no additional complaints, except as docu
--- NOTE | 2022-06-20 13:51 | PM.DS ---
DS: Admitting Diagnosis Discharge Date 06/20/2022 Admitting Diagnosis Chest pain DS: Discharge Diagnosis Discharge Diagnosis (1) Chest pain: Code(s): R07.9 - Chest pain, unspecified Status: Acute (2) Hypertension: Code(s): I10 - Essential (primary) hypertension Status: Acute (3) Hyperlipidemia: Code(s): E78.5 - Hyperlipidemia, unspecified Status: Acute (4) Anxiety: Code(s): F41.9 - Anxiety disorder, unspecified Status: Acute (5) Depression: Code(s): F32.9 - Major depressive disorder, single episode, unspecified Status: Acute DS: Summary Hospital Course Hospital Course: This is an 81-year-old female patient who came to the emergency room complaining of a sudden onset of retrosternal pain that started at 7:00 a.m. last night.? When she was watching TV.? She stated that her pain was 10/10.? The patient stated that it hurts worse when she takes a deep breath.? She feels better when she is in a sitting position and bending forward.? It is worse when she lays flat.? The patient stated could she could not sleep all night long.? She still continues to have pain 2/10.? She denies any fever chills or any nausea vomiting or diarrhea.? Her white count is 13.7.? The patient denies any coughing.? Her CRP is 3.3.? BNP is only 299.? She is negative for influenza A/B and COVID as well as RSV.? Chest x-ray was read as minimal bibasilar airspace opacities consistent with atelectasis versus pneumonia.? CTA was read as no pulmonary embolus identified.? Mild atelectasis of the lower lobes and right middle lobe.? The patient was given a GI cocktail and tramadol.? Troponin is nonreactive x2.? EKG is sinus rhythm borderline R-wave progression.? No changes since her last EKG.? The patient is being admitted to observation status on the date of service of 06/19/2022. # chest pain:Patient's troponins are nonreactive x2 EKGs unchanged Chest x-ray was read as Minimal bibasilar airspace opacities, consistent with atelectasis versus pneumonia CT was performed which showed no pulmonary embolism and atelectasis Her inflammatory markers are elevated EKG not suggestive of pericarditis Has reproducible chest pain to worse her costochondral junction. History of costochondritis in the past. Likely has costochondritis She takes Aleve at home which is recommended Her chest pain improved with conservative management She ruled out for ACS EKG with no new changes compared to EKG on 06/30/2021 She does have moderate to severe aortic stenosis Cardiology was consulted. She also does have history of GERD and on omeprazole every other day. Pepcid was added to her regimen and suggested at discharge # hypertension likely pain related resolved no prior diagnosis # hyperlipidemia: Atorvastatin which will continued # anxiety disorder on Ativan p.r.n. # depression situational no longer take any medication Quality Time Spent with Patient Time attestation: Total time spent providing and/or coordinating discharge services: 45 minutes Exam Narrative: General appearance: Well-developed, well-nourished Skin: Normal color Head: Normocephalic, nontraumatic Eyes: Clear conjunctiva ENT: Oropharynx normal, ears normal, nose normal Neck: Supple, nontender Chest and respiratory: Airway patent, no respiratory distress, no accessory muscle use Heart: Regular rate/rhythm Abdomen: Soft, tender epigastric, no organomegaly, quiet bowel sounds Vascular: Normal peripheral pulses, normal capillary refill. 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
== END 2022-06-20 15:02 | disposition home or self-care (01) ==
LOC: ANHED 10:45 → ANHIMU 16:44
PROVIDERS: Nurse Practitioner; Admitting Provider Internal Medicine; Emergency Provider Emergency Medicine; PCP Internal Medicine; Visit Provider Internal Medicine
DX: R07.9 Chest pain, unspecified (principal); I11.9 Hypertensive heart disease without heart failure; E78.5 Hyperlipidemia, unspecified; F41.9 Anxiety disorder, unspecified; F32.9 Major depressive disorder, single episode, unspecified; J98.11 Atelectasis; Z20.822 Contact with and (suspected) exposure to COVID-19; I08.3 Combined rheumatic disorders of mitral, aortic and tricuspid valves; I27.20 Pulmonary hypertension, unspecified; K58.9 Irritable bowel syndrome, unspecified; R94.31 Abnormal electrocardiogram [ECG] [EKG]; F10.90 Alcohol use, unspecified, uncomplicated; Z79.899 Other long term (current) drug therapy
CPT/HCPCS: 36415; 36600; 71045; 71275; 80053; 80307; 82805; 83605; 83690; 83735; 83880; 84443; 84484; 85025; 85380; 85610; 85652; 85730; 86140; 87637; 93005; 96372; 96374; 96376; 99285; A9270; G0378; J1650; Q9967

== ENCOUNTER 2022-12-28 14:04 | Outpatient (CLI) | payer MEDICARE, OTHER, SELFPAY ==
--- NOTE | ~2022-12-28 | MM_ITS ---
EXAMINATION: MM screening jacqueline BI w rama HISTORY: Screening mammogram TECHNIQUE: Craniocaudal and mediolateral oblique 3-D tomosynthesis images were obtained and synthetic 2-D images were generated. CAD analysis was submitted and interpreted. COMPARISON: 01/15/2021, 01/01/2019, 12/29/2016 BREAST PARENCHYMAL COMPOSITION: The breasts are heterogeneously dense, which may obscure small masses . FINDINGS: No suspicious mass, calcification, or architectural distortion are identified in either will ast to suggest malignancy. There has been no suspicious interval change. IMPRESSION: 1. No mammographic evidence of malignancy. 2. Recommend routine screening mammography while the patient remains in good health. BI-RADS Category 1: Negative Reviewed, dictated and finalized at location A. IMPRESSION: 1. No mammographic evidence of malignancy. 2. Recommend routine screening mammography while the patient remains in good he alth. BI-RADS Category 1: Negative
== END 2022-12-28 14:05 | disposition home or self-care (01) ==
LOC: ANHIMG 14:07
PROVIDERS: PCP Internal Medicine; Visit Provider Internal Medicine
DX: Z12.31 Encounter for screening mammogram for malignant neoplasm of breast (principal)
CPT/HCPCS: 77063; 77067

== ENCOUNTER 2023-02-13 01:36 | Day surgery (SDC) | payer MEDICARE, OTHER, SELFPAY ==
[2023-02-10 13:05] VITALS: BMI 23.0
[2023-02-13] VITALS (8 sets, daily range): BP systolic 141–168; BP diastolic 70–97; PULSE 64–87; RESP 12–20; TEMP 36.6; O2SAT 95–98; BMI 22.2
[2023-02-13 09:05] LABS: Basophils Absolute Auto 0.1 K/mm3 (0.0-0.1); Basophils Percent Auto 0.9 % (0.2-1.2); Eosinophils Absolute Auto 0.2 K/mm3 (0-0.3); Eosinophils Percent Auto 2.2 % (0-4.4); Hematocrit 48.3 % (37.0-47.0); Hemoglobin 15.4 g/dL (12.0-15.0); Immature Granulocyte Absolute 0.03 K/mm3 (0.00-0.031); Immature Granulocyte Percent A 0.4 % (0-0.5); Lymphocytes Absolute Auto 1.22 K/mm3 (0.9-3.2); Mean Corpuscular HGB Conc 31.9 g/dl (32-36); Mean Corpuscular Hemoglobin 29.6 pg (26-34); Mean Corpuscular Volume 92.9 fl (80-100); Mean Platelet Volume 9.5 fl (7.4-10.4); Monocytes Absolute Auto 0.8 K/mm3 (0.1-0.6); Monocytes Percent Auto 9.2 % (2.6-8.5); Neutrophils Absolute Auto 5.9 K/mm3 (1.3-6.7); Neutrophils Percent Auto 72.3 % (45.5-73.1); Platelet Count Result 239 k/mm3 (150-375); White Blood Count 8.2 K/mm3 (4.5-10.0)
[2023-02-13 09:19] LABS: Anion Gap 8 mmol/L (8-16); Blood Urea Nitrogen 15 mg/dL (7-17); Carbon Dioxide 30 mmol/L (22-30); Chloride 103 mmol/L (98-107); Estimated CRCL calculation 38 ml/min; Estimated Glomerular Filt Rate > 60; Glucose 108 mg/dL (65-110); Potassium 3.9 mmol/L (3.4-5.0); Sodium 141 mmol/L (137-145)
--- NOTE | 2023-02-13 12:04 | WPDMODSED ---
Moderate Sedation Note-Pt Data Patient Data Diagnosis: severe/ symptomatic aortic valve stenosis Present Complaint: MAYS/chest pain Procedure to be performed/Plan: right and left heart catheterization Allergies Allergy/AdvReac Type Severity Reaction Status Date / Time aluminum AdvReac Mild Rash Verified 02/13/23 08:56 Home Medications Medication Instructions Recorded Confirmed Type atorvastatin 10 mg tablet 10 mg PO HS 06/30/21 02/10/23 History valacyclovir 500 mg tablet 500 mg PO 4XW 06/30/21 02/10/23 History Lactobacillus acidophilus 10 1 cell PO DAILY 02/10/23 02/10/23 History billion cell capsule buspirone 5 mg tablet 5 mg PO TID 02/10/23 02/10/23 History coenzyme Q10 100 mg capsule 100 mg PO DAILY 02/10/23 02/10/23 History famotidine 20 mg tablet 20 mg PO DAILY 02/10/23 02/10/23 History gabapentin 300 mg capsule 300 mg PO DAILY 02/10/23 02/10/23 History garlic 1 cap PO DAILY 02/10/23 02/10/23 History inulin-sorbitol 2 gram chewable 1 tablet PO DAILY 02/10/23 02/10/23 History tablet loratadine 10 mg tablet 10 mg PO DAILY 02/10/23 02/10/23 History magnesium oxide 400 mg PO DAILY 02/10/23 02/10/23 History melatonin 5 mg capsule 5 mg PO DAILY 02/10/23 02/10/23 History multivit with minerals-iron 18 1 tablet PO DAILY 02/10/23 02/10/23 History mg-folic ac 400 mcg-vit K 25 mcg tablet (Adults Multivitamin) niacin 50 mg tablet 50 mg PO DAILY 02/10/23 02/10/23 History Current Medications: Active Medications Sodium Chloride (Normal Saline Iv) 500 mls @ 100 mls/hr IV CONT .Q5H CYN Sedation/Anesthesia: No previous sedation/anesthesia problems (including family history). [facility] [place] Past Medical History Medical History Anxiety Depression Hyperlipidemia Hypertension Irritable bowel syndrome Renal disease Severe aortic stenosis Surgical History Surgical History H/O repair of rotator cuff History of orthopedic surgery Hx of cholecystectomy Family History Family History Father Acute myocardial infarction Mother Tao palsy Grandparent Cerebrovascular accident Son Cancer Social History Social History (Updated 06/19/22 @ 16:56 by Vanita Hand NP) Social History: She lives with her . She had 3 children but now only has the 2 children. 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 code Smoking status: Never smoker Second hand tobacco smoke exposure: No Alcohol intake: never Substance use: never Substance use type: does not use Lack of Transportation: No Lack of Food: Never True Current Housing: I Have Housing Concerned About Future Housing: No Difficulty Paying Gas/Electric Bills: No Difficulty Paying for Meds: No Currently Unemployed: No Education: Bachelor's Degree Difficulty w/ Childcare or Family Care: No Living arrangements: with family Spiritual care concerns: No Mod Sed Physical Exam Physical Exam Pre Procedural Exam: Normal: Appearance ( pleasant elderly lady no distress), Neck, Throat, Airway, Lungs, Heart Size, Heart Rate ( high-pitched 2/6 murmur of aortic stenosis), Heart Rhythm, Neuro Exam and Extremities Hours since solid foods: 12 Hours since liquid intake: 12 Mallampati Classification: class II Internal Medicine - PN: Obj Da Vital Signs Vital Signs: Vital Signs - 24 hr 02/13/23 08:58 Temperature 36.6 C Pulse Rate 87 Respiratory Rate 17 Blood Pressure 168/93 H Pulse Oximetry 95 Oxygen Delivery Room Air Meds/Results Medications: Active Medications Generic Name Dose Route Start Last Admin Trade Name Freq PRN Reason Stop Dose Admin Sodium Chloride 500 mls @ 100 mls/hr 02/13/23 08:30 Normal Saline Iv IV CONT .Q5H CYN Labs 02/13/23 08:55 02/13/23 08:55 Labs: Laboratory Results - last 24 hr
--- NOTE | 2023-02-13 12:50 | WPDCARDPROC ---
Cardiac Cath Procedure Note Date of procedure:: 02/13/23 Performing physician:: César Orourke MD Indication:: symptomatic aortic valve stenosis Brief clinical history:: this is an 82-year-old woman known to have aortic valve stenosis been followed in the office as an outpatient. Earlier this year she has become symptomatic with exertional dyspnea and was seen in the office recently where echocardiogram demonstrates progression of aortic valve stenosis with valve area 0.7 cm2. Patient appears to have a high gradient. She is brought for catheterization to gather data necessary to consider aortic valve replacement. Procedure Procedure performed:: Right heart catheterization coronary angiography Angio-Seal to right femoral artery Sedation/Medication given:: fentanyl 25 mg Versed 2 mg case start time 12:22 p.m. case end time 12:46 p.m. sedation provided by Sebastian Nunes RN, trained observer Access site:: right femoral artery right femoral vein Estimated blood loss:: 25 cc Procedure note:: patient was brought to the cardiac catheterization lab in the postabsorptive state where the right femoral triangle was prepared and draped in the usual fashion. Anesthesia was given with 1% lidocaine infiltrated locally. Using the modified Seldinger technique the right common femoral artery was punctured and a 5 Spanish vascular sheath was placed. After this the femoral vein was punctured and a 7 Spanish vascular sheath was placed. Through the femoral vein I then used a balloon tip Mcallister-Heather catheter to collect right-sided hemodynamics and, performed thermodilution cardiac outputs and sample av O2 difference. After this the Mcallister-Heather catheter was removed. I then used a standard 5 Spanish FL4 catheter to engage and inject the left coronary artery in multiple projections the 5 Spanish JR4 catheter was used to engage and inject the right coronary artery. The cineangiograms were then reviewed and the case was terminated. An angiogram was done of the femoral artery through the sheath after which a 6 Spanish Angio-Seal device was deployed with good hemostatic result. Patient was then taken to the holding area for post cath recovery. There were no apparent complications and there was no evidence of groin hematoma upon her departure from the cardiac catheterization lab. Findings:: Hemodynamics: Right atrial pressure is 3 mmHg. Right ventricle 34 over 0 end-diastolic 2, pulmonary artery pressure 35 over 10. Pulmonary capillary wedge pressure 7. Central aorta 170 over 82. Aortic valve was not crossed during this procedure. Thermal dilution cardiac output is 3.4 liters/minute giving an index of 2.2. Dot cardiac output is 3.9 liters/minute giving an index of 2.4. The left main coronary artery is nicely patent. The left anterior descending is a medium caliber artery extending down to the apex. There is angiographically mild disease in the mid LAD after the major diagonal is seen. There is no significant proximal LAD disease or disease in the major diagonal. Following this the LAD itself has tubular area of about 50-60% stenosis. The circumflex is a medium caliber artery giving to marginal branches the circumflex is angiographically free of disease. The right coronary artery is larger in caliber and dominant to the posterior circulation. The right coronary artery has a rather low takeoff just above the aortic valve. It is angiographically free of disease. Conclusion:: 1. Right coronary dominant circulation with single-vessel coronary disease approximately 50-60% stenosis in the mid LAD following the origin of the major diagonal branch. 2. Right-sided hemodynamics demonstrating no significant pulmonary hypertension and normal left-sided filling pressures. 3. Preserved cardiac index César Orourke MD [facility]
== END 2023-02-13 16:05 | disposition home or self-care (01) ==
PROVIDERS: PCP Internal Medicine; Visit Provider Specialist
PROC: (CPT 93566; principal; 2023-02-13 10:00)
DX: I35.0 Nonrheumatic aortic (valve) stenosis (principal); F41.9 Anxiety disorder, unspecified; F32.A Depression, unspecified; E78.5 Hyperlipidemia, unspecified; K58.9 Irritable bowel syndrome, unspecified; I25.10 Atherosclerotic heart disease of native coronary artery without angina pectoris; I12.9 Hypertensive chronic kidney disease with stage 1 through stage 4 chronic kidney disease, or unspecified chronic kidney disease; N18.9 Chronic kidney disease, unspecified; Z90.49 Acquired absence of other specified parts of digestive tract; Z86.79 Personal history of other diseases of the circulatory system; Z82.49 Family history of ischemic heart disease and other diseases of the circulatory system; Z80.9 Family history of malignant neoplasm, unspecified
CPT/HCPCS: 36415; 80048; 85025; 93456; C1760; C1887; C1894; G0269; J1644; J2250; J3010; J7040

== ENCOUNTER 2023-06-29 19:17 | Emergency (ER) | payer MEDICARE, OTHER, SELFPAY ==
--- NOTE | ~2023-06-29 | XR_ITS ---
EXAMINATION: XR chest 1V portable DATE: 06/29/2023 21:18 INDICATION: Infection TECHNIQUE: frontal view of the chest was obtained. COMPARISON: None FINDINGS: The lungs are clear with no focal airspace opacities, pulmonary edema, pleural effusion or pneumothor ax. Heart size is normal. Aortic valve repair. Dual lead pacemaker seen with leads projecting over th e expected locations of the right atrium and right ventricle. IMPRESSION: 1. No acute cardiopulmonary disease. Reviewed, dictated and finalized at location A.
[2023-06-29 19:18] VITALS: BP 172/74; PULSE 73; RESP 20; TEMP 36.6; O2SAT 100
[2023-06-29 19:53] LABS: Glucose Point of Care 106 mg/dl (65-105)
[2023-06-29 21:07] VITALS: RESP 16; O2SAT 99
--- NOTE | 2023-06-29 21:10 | ECG_ITS ---
Measurements Intervals [place] Rate: 66 P: 14 [place]: 202 QRS: -66 QRSD: 153 T: 80 QT: 455 QTc: 479 Interpretive Statements ELECTRONIC VENTRICULAR PACEMAKER SINUS RHYTHM WITH ATRIAL SENSING AND VENTRICULAR PACING ABNORMAL RHYTHM ECG COMPARED TO ECG 06/20/2022 10:35:48 VENTRICULAR RHYTHM IS ELECTRONICALLY PACED Electronically Signed On 06-30-2023 7:43:31 CDT by César Orourke M.D.
[2023-06-29 21:11] LABS: Basophils Absolute Auto 0.1 K/mm3 (0.0-0.1); Basophils Percent Auto 0.9 % (0.2-1.2); Eosinophils Absolute Auto 0.4 K/mm3 (0-0.3); Eosinophils Percent Auto 4.6 % (0-4.4); Hematocrit 46.1 % (37.0-47.0); Hemoglobin 14.7 g/dL (12.0-15.0); Immature Granulocyte Absolute 0.02 K/mm3 (0.00-0.031); Immature Granulocyte Percent A 0.2 % (0-0.5); Lymphocytes Absolute Auto 1.75 K/mm3 (0.9-3.2); Mean Corpuscular HGB Conc 31.9 g/dl (32-36); Mean Corpuscular Hemoglobin 28.9 pg (26-34); Mean Corpuscular Volume 90.7 fl (80-100); Mean Platelet Volume 9.6 fl (7.4-10.4); Monocytes Absolute Auto 0.8 K/mm3 (0.1-0.6); Monocytes Percent Auto 8.7 % (2.6-8.5); Neutrophils Absolute Auto 5.7 K/mm3 (1.3-6.7); Neutrophils Percent Auto 65.6 % (45.5-73.1); Platelet Count Result 166 k/mm3 (150-375); Red Blood Count 5.08 M/mm3 (4.2-5.4); Red Cell Distribution Width 13.5 % (11.5-14.5); White Blood Count 8.7 K/mm3 (4.5-10.0)
[2023-06-29 21:22] LABS: Anion Gap 4 mmol/L (4-12); Blood Urea Nitrogen 19 mg/dL (7-17); Calcium 9.6 mg/dL (8.4-10.2); Carbon Dioxide 31 mmol/L (22-30); Chloride 104 mmol/L (98-107); Estimated CRCL calculation 38 ml/min; Estimated Glomerular Filt Rate > 60; Glucose 105 mg/dL (65-110); Potassium 3.9 mmol/L (3.4-5.0); Sodium 139 mmol/L (137-145)
--- NOTE | 2023-06-29 21:30 | ED.GENADULT ---
HPI - General Adult General Chief complaint: Recheck/Abnormal Lab/Rx Stated complaint: low blood sugar Time Seen by Provider: 06/29/23 21:08 History of Present Illness HPI narrative: Patient is an 82-year-old female who presents to the emergency department this evening due to a hypoglycemic episode. Patient states that around 4-5 p.m. this evening she was sitting at home in her office when she noticed that she was lightheaded and felt as though her vision was slightly blurry. Patient got up and rushed to the living room and her initial thought was that maybe something is wrong with her pacemaker which was placed 2 months ago at [place]. 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 Patient states that during this episode she never felt short of breath or had any chest pain. Patient then called EMS and after their initial evaluation, it was noted the patient's blood glucose level was 50. Patient was administered oral glucose with repeat glucose level of 121. Patient states that while she was in the ambulance she called her son who is a diabetic and she described her symptoms to him and he told her that her symptoms are the exact symptoms he has when his blood glucose is low. Patient states that after the oral glucose that she received, she has felt much better and is currently denying any dizziness, lightheadedness, blurry visions, focal weakness, numbness and tingling, chest pain or shortness of breath, nausea, vomiting, fevers or chills. Patient admits that she has not had anything to eat or drink since 11:00 a.m. and had a small breakfast. She denies any history of recurrent hypoglycemia and states that in her entire life she has only had 1 episode where her blood glucose level was low. There are no other modifying, alleviating, or precipitating factors at this time. Related Data Home Medications Medication Instructions Recorded Confirmed atorvastatin 10 mg tablet 10 mg PO HS 06/30/21 02/10/23 valacyclovir 500 mg tablet 500 mg PO 4XW 06/30/21 02/10/23 Lactobacillus acidophilus 10 1 cell PO DAILY 02/10/23 02/10/23 billion cell capsule buspirone 5 mg tablet 5 mg PO TID 02/10/23 02/10/23 coenzyme Q10 100 mg capsule 100 mg PO DAILY 02/10/23 02/10/23 famotidine 20 mg tablet 20 mg PO DAILY 02/10/23 02/10/23 gabapentin 300 mg capsule 300 mg PO DAILY 02/10/23 02/10/23 garlic 1 cap PO DAILY 02/10/23 02/10/23 inulin-sorbitol 2 gram chewable 1 tablet PO DAILY 02/10/23 02/10/23 tablet loratadine 10 mg tablet 10 mg PO DAILY 02/10/23 02/10/23 magnesium oxide 400 mg PO DAILY 02/10/23 02/10/23 melatonin 5 mg capsule 5 mg PO DAILY 02/10/23 02/10/23 multivit with minerals-iron 18 1 tablet PO DAILY 02/10/23 02/10/23 mg-folic ac 400 mcg-vit K 25 mcg tablet (Adults Multivitamin) niacin 50 mg tablet 50 mg PO DAILY 02/10/23 02/10/23 Allergies Allergy/AdvReac Type Severity Reaction Status Date / Time aluminum AdvReac Mild Rash Verified 02/13/23 08:56 Review of Systems Review of Systems: All systems are reviewed and are negative unless stated otherwise in the HPI. [facility] Past Medical History Medical History Anxiety Depression Hyperlipidemia Hypertension Irritable bowel syndrome Renal disease Severe aortic stenosis Surgical History Surgical History H/O repair of rotator cuff History of orthopedic surgery Hx of cholecystectomy Family History Family History Father Acute myocardial infarction Mother Tao palsy Grandparent Cerebrovascular accident Son Cancer Social History Social History Social History: She lives with her . She had 3 children but now only has the 2 children. 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
[2023-06-29 21:57] VITALS: BP 158/78; PULSE 74; RESP 18; O2SAT 99
== END 2023-06-29 21:58 | disposition home or self-care (01) ==
LOC: ANHED 21:45
PROVIDERS: Physician Assistant; Emergency Provider Emergency Medicine; PCP Internal Medicine
DX: E16.2 Hypoglycemia, unspecified (principal); I35.0 Nonrheumatic aortic (valve) stenosis; I10 Essential (primary) hypertension; E78.5 Hyperlipidemia, unspecified; K58.9 Irritable bowel syndrome, unspecified; N28.9 Disorder of kidney and ureter, unspecified; F41.9 Anxiety disorder, unspecified; F32.A Depression, unspecified; Z95.0 Presence of cardiac pacemaker; Z90.49 Acquired absence of other specified parts of digestive tract
CPT/HCPCS: 36415; 71045; 80048; 82948; 85025; 93005; 99283

== ENCOUNTER 2023-09-21 11:15 | Outpatient (RCR) | payer MEDICARE, OTHER, SELFPAY ==
[2023-06-20 12:02] VITALS: PULSE 75
[2023-07-03 11:10] LABS: Glucose Point of Care 142 mg/dl (65-105)
[2023-07-03 12:07] LABS: Glucose Point of Care 128 mg/dl (65-105)
[2023-07-06 11:44] LABS: Glucose Point of Care 125 mg/dl (65-105)
[2023-07-10 11:38] LABS: Glucose Point of Care 97 mg/dl (65-105)
[2023-07-12 11:23] LABS: Glucose Point of Care 117 mg/dl (65-105)
[2023-07-24 12:11] LABS: Glucose Point of Care 99 mg/dl (65-105)
[2023-08-07 15:41] LABS: Glucose Point of Care 76 mg/dl (65-105)
== END 2023-09-27 09:56 | disposition home or self-care (01) ==
LOC: ANHCPREHAB 11:15
PROVIDERS: PCP Internal Medicine
DX: Z95.2 Presence of prosthetic heart valve (principal)
CPT/HCPCS: 93798

== ENCOUNTER 2023-11-20 14:29 | Emergency (ER) | payer MEDICARE, OTHER, SELFPAY ==
[2023-11-20 14:46] VITALS: BP 121/62; PULSE 94; RESP 19; TEMP 37.1; O2SAT 97
[2023-11-20 15:35] LABS: EDINFLUASCREEN Negative; EDINFLUBSCREEN Negative
[2023-11-20 15:36] LABS: EDSTREPNEGPOS1 Negative
--- NOTE | 2023-11-20 15:55 | ED.URI ---
HPI - URI/Sore Throat General Chief Complaint: Upper Respiratory Infection Stated Complaint: Sore Throat Time Seen by Provider: 11/20/23 15:55 Source: patient, RN notes reviewed and old records reviewed Mode of arrival: ambulatory Limitations: no limitations History of Present Illness HPI Narrative: 82-year-old female presents to the [facility] with complaints of a sore throat since 2:30 this morning Patient concern for COVID-19 Patient denies any fevers Onset (ago): hour(s) (13) Related Data Home Medications Medication Instructions Recorded Confirmed atorvastatin 10 mg tablet 10 mg PO HS 06/30/21 11/20/23 valacyclovir 500 mg tablet 500 mg PO 4XW 06/30/21 11/20/23 Lactobacillus acidophilus 10 1 cell PO DAILY 02/10/23 11/20/23 billion cell capsule buspirone 5 mg tablet 5 mg PO TID 02/10/23 11/20/23 coenzyme Q10 100 mg capsule 100 mg PO DAILY 02/10/23 11/20/23 famotidine 20 mg tablet 20 mg PO DAILY 02/10/23 11/20/23 gabapentin 300 mg capsule 300 mg PO DAILY 02/10/23 11/20/23 garlic 1 cap PO DAILY 02/10/23 11/20/23 inulin-sorbitol 2 gram chewable 1 tablet PO DAILY 02/10/23 11/20/23 tablet loratadine 10 mg tablet 10 mg PO DAILY 02/10/23 11/20/23 magnesium oxide 400 mg PO DAILY 02/10/23 11/20/23 melatonin 5 mg capsule 5 mg PO DAILY 02/10/23 11/20/23 multivit with minerals-iron 18 1 tablet PO DAILY 02/10/23 11/20/23 mg-folic ac 400 mcg-vit K 25 mcg tablet (Adults Multivitamin) niacin 50 mg tablet 50 mg PO DAILY 02/10/23 11/20/23 Allergies Allergy/AdvReac Type Severity Reaction Status Date / Time aluminum AdvReac Mild Rash Verified 11/20/23 14:36 Review of Systems Review of Systems: All systems reviewed & are unremarkable except as noted in HPI and below Constitutional: Constitutional: Reports no additional constitutional complaints Eyes: Eyes: Reports no additional eye complaints ENT: Reports as per HPI and Reports sore throat Cardiovascular: Cardiovascular: Reports no additional cardiovascular complaints, Denies chest pain and Denies dyspnea Respiratory: Respiratory: Reports no additional respiratory complaints, Denies chest congestion, Denies cough and Denies dyspnea Gastrointestinal: Gastrointestinal: Reports no additional gastrointestinal complaints, Denies abdominal pain, Denies nausea and Denies vomiting Musculoskeletal: Musculoskeletal: Reports no additional musculoskeletal complaints Integumentary/Breasts: Skin/Breast: Reports system reviewed and no additional complaints, except as docu Neurologic: Reports system reviewed and no additional complaints, except as documented Psychiatric: Psychiatric: Reports no additional psychiatric complaints Allergic/Immunologic: Allergic/Immunologic: Reports no additional allergic/immunologic complaints PMFSH Past Medical History Medical History Anxiety Depression Hyperlipidemia Hypertension Irritable bowel syndrome Renal disease Severe aortic stenosis Surgical History Surgical History H/O repair of rotator cuff History of orthopedic surgery Hx of cholecystectomy Family History Family History Father Acute myocardial infarction Mother Tao palsy Grandparent Cerebrovascular accident Son Cancer Social History Social History Social History: She lives with her . She had 3 children but now only has the 2 children. 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 code Smoking status: Never smoker Second hand tobacco smoke exposure: No Alcohol intake: never Substance use: never Substance use type: does not use Lack of Transportation: No Lack of Food: Never True Current Housing: I Have Housing Concerned About Future Housing: No Difficulty Paying Gas/Electric Bills: No Difficulty Paying for Meds: No Curre
== END 2023-11-20 16:08 | disposition home or self-care (01) ==
PROVIDERS: Emergency Provider Nurse Practitioner; PCP Internal Medicine
DX: J06.9 Acute upper respiratory infection, unspecified (principal); Z20.822 Contact with and (suspected) exposure to COVID-19; E78.5 Hyperlipidemia, unspecified; I10 Essential (primary) hypertension; I35.0 Nonrheumatic aortic (valve) stenosis
CPT/HCPCS: 87081; 87426; 87804; 87880; 99213; G0463

== ENCOUNTER 2024-08-22 13:21 | Outpatient (CLI) | payer MEDICARE, OTHER, SELFPAY ==
--- NOTE | ~2024-08-22 | DEXA_ITS ---
Bone Density Report Name: CASEY MARLEY Age: 83 Sex: Female Ethnicity: White Date of : 1940 Indication: osteopenia; monitoring treatment; height loss; inflammatory bowel disease; Referring Provider: NIELS, TERRY [place] Study: Bone densitometry was performed. Exam Date: August 22, 2024 Accession number: [id number] Bone Density: Region BMD T-score Z-score Classification AP Spine(L1, L2) 0.778 -1.8 0.9 Osteopenia Femoral Neck (Left) 0.636 -1.9 0.6 Osteopenia Total Hip (Left) 0.827 -0.9 1.4 Normal Femoral Neck (Right) 0.613 -2.1 0.4 Osteopenia Total Hip (Right) 0.819 -1.0 1.3 Normal Total Hip Mean 0.823 -1.0 1.4 Normal World Health Organization criteria for BMD impression classify patients as: Normal (T-score at or above -1.0), Osteopenia (T-score between -1.0 and -2.5), or Osteoporosis (T-score at or below -2.5). 10-year Fracture Risk: FRAX not reported because: Treated for osteoporosis Previous Exams: -- Region Exam Age BMD T-score BMD Change BMD Change Date g/cm2 vs Baseline vs Previous -- AP Spine (L1-L2) 08/22/2024 83 0.778 -1.8 5.1%* -2.7% 01/01/2019 78 0.800 -1.6 8.1%* -9.3%* 02/12/2010 69 0.882 -0.9 19.1%* 1.9% 01/21/2008 67 0.865 -1.0 16.8%* 16.8%* 06/01/2005 64 0.740 -2.2 Total Hip(Left) 08/22/2024 83 0.827 -0.9 -5.3%* -8.6%* 01/01/2019 78 0.904 -0.3 3.6%* 0.1% 02/12/2010 69 0.903 -0.3 3.5%* 3.6%* 01/21/2008 67 0.872 -0.6 -0.1% -0.1% 06/01/2005 64 0.873 -0.6 Total Hip(Right) 08/22/2024 83 0.819 -1.0 -9.6%* -9.9%* 01/01/2019 78 0.909 -0.3 0.3% 3.5%* 02/12/2010 69 0.878 -0.5 -3.1%* 2.8% 01/21/2008 67 0.854 -0.7 -5.7%* -5.7%* 06/01/2005 64 0.906 -0.3 -- *Denotes significance at 95% confidence level, LSC for AP Spine = 0.022 g/cm2, LSC for Total Hip = 0.027 g/cm2 Rate of change results reflect vertebral levels common to all scans Clinical Information Provided by Patient: Is being treated for osteoporosis Has used the following medications: Actonel (i.e. risedronate), Fosamax (i.e. alendronate), Vitamin D Has the following medical conditions: Inflammatory bowel diseases Patient maximum height was 64 Menopause Age: 57 No regular weight bearing exercise Onset of menses at age 9 Number of children 3 Impression: The patient has low bone mass, based on the Right Femoral Neck T-score. The BMD for the Total Hip(Left) decreased, changing by -8.6% since the last DXA exam. The BMD for the Total Hip(Right) decreased, changing by -9.9% since the last DXA exam. Discussion: SIGNIFICANT BONE LOSS OBSERVED. Adherence to therapy (including calcium and vitamin D intake) should be assessed. If compliance is not a factor, review management and exclusion of secondary causes of bone loss. It is important to ask patients whether they are taking their medications and to encourage continued and appropriate compliance with their osteoporosis therapies to reduce fracture risk. It is also important to review their risk factors and encourage appropriate calcium and vitamin D intakes, exercise, fall prevention and other lifestyle measures. Follow-Up: Consider a repeat BMD and Vertebral Fracture Assessment (VFA) exam in 2 years or sooner if medically necessary, to reassess this patient's status. Reported by: HUMBLE on 08/22/2024 1:47:00 PM. Reviewed, dictated and finalized at location A.
== END 2024-08-22 13:22 | disposition home or self-care (01) ==
LOC: MICIMG 13:24
PROVIDERS: Visit Provider Internal Medicine
DX: M85.89 Other specified disorders of bone density and structure, multiple sites (principal); Z78.0 Asymptomatic menopausal state
CPT/HCPCS: 77080

== ENCOUNTER 2024-10-03 09:59 | Emergency (ER) | payer MEDICARE, OTHER, SELFPAY ==
--- OUTSIDE RECORDS SUMMARY | 2024-10-03 10:05 | XMS_ITS | Clinical Summary ---
Author Organization [facility] Address [address] [place] [address] Care Team Providers Care Chief Growth Officer Name Role Phone Socorro Cox MD Primary Care Provider [phone] Doug Rosario MD Unavailable [phone] Kody Delvalle MD PhD Unavailable Allergies Active Allergy Reactions Criticality Noted Date Comments Acetone Itching Low 03/01/2023 Aluminum Itching Low 05/09/2022 Epinephrine Palpitations Low 05/10/2023 Fentanyl Other (See comments) Low 03/01/2023 SENSITIVITY Lidocaine Palpitations Low 06/06/2023 Medications melatonin 5 mg capsule 5 mg. 0 0 5 Active inulin-sorbitol (FIBER SUPPLEMENT, INULIN,) 2 gram tablet,chewable 0 0 5 Active Additional Information Patient not taking.Informant: Self, Reported on 08/12/2024 gabapentin (NEURONTIN) 300 mg capsuleIndicati ons:Restless Legs Syndrome Take 1 capsule (300 mg total) by mouth nightly Active loratadine 10 mg capsuleIndicati ons:Allergic Rhinitis Take 1 capsule by mouth rn bone marrow transplant before breakfast Active aspirin 81 mg chewable tabletIndicatio ns:coronary artery disease Take 1 tablet (81 mg total) by mouth daily 4 Active famotidine (PEPCID) 20 mg tablet Take 1 tablet (20 mg total) by mouth daily Active food supplemt, lactose-reduced liquid Take by mouth Active amoxicillin (AMOXIL) 500 mg tablet/capsule Take 4 caps (2000 mg) 30-60 minutes prior to dental appointment. 8 tablet/capsu le 4 4 Active fluticasone propionate (FLONASE) 50 mcg/actuation nasal spray Active coenzyme Q10 (CoQ-10) 100 mg capsule Active pyrroloquinolin e quinone disod ([id number]-[id number] UINOLINE QUINONE ORAL) Active multivitamin with iron tablet Take 1 tablet by mouth daily Active garlic 1,000 mg capsule Take 1 capsule by mouth daily Active meclizine (ANTIVERT) 25 mg tablet Take 1 tablet (25 mg total) by mouth 3 (three) times a day as needed Active atorvastatin (LIPITOR) 20 mg tablet Take 1 tablet (20 mg total) by mouth daily 90 tablet 3 5 Active Hospital, Clinic, or Other Facility Administered Medication Ordered Dose Route Frequency Start Date End Date Status perflutren lipid (DEFINITY) 1.5 mL in sodium chloride 0.9% 10 mL syringe 1 - 10 mL IV Once in imaging 06/19/2024 Active Active Problems Problem Noted Date Diagnosed Date Complete heart block 08/02/2023 Adjustment and management of cardiac pacemaker 0 08/02/2023 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 Assessment & Plan (04/26/2023 1:23 PM OCCUPATIONAL THERAPY SPECIALIST): S/p TAVR on 04/26 DAPT for one month, then ASA 81 mg daily indefinitely PT/OT evaluation tomorrow AM CXR, EKG, TTE and labs tomorrow AM Monitor on telemetry for any evidence of AV block Encounter for examination fo r normal comparison and control in clinical research program 04/07/2023 Nonrheumatic aortic valve stenosis 08/25/2020 Encounters Date Type Department Care Team Description 08/13/2024 Telephone [facility] [address]th [place] [address] [place] [address] Raquel Corona 08/13/2024 Telephone [facility] 8th [place] [address] [place] [address] Raquel Corona 08/12/2024 11:15 AM CDT Office Visit [facility] [address] [place] [address] 8th [place] [address] [place] [address] Kody Delvalle MD PhD Adjustment and management of cardiac pacemaker (Primary Dx); Complete heart block (HCC) 08/12/2024 10:45 AM CDT Ancillary Procedure [facility] [address] [place] [address] 8th [place] [address] [place] [address] CHB (complete heart block) (HCC) (Primary Dx); Fitting or adjustment of cardiac pacemaker from Last 3 Months Immunizations Immunization Administration Dates Next Due Influenza, Unspecified 12/28/2022 Surgical History Surgery Date Site/Laterality Comments CHOLECYSTECTOMY Cholecystectomy ROTATOR CUFF REPAIR 03/27/2000 - 03/26/2001 CERVICAL BIOPSY W/ LOOP ELECTRODE EXCISION 03/27/1998 - 03/26/1999 CATARACT EXTRACTION 03/27/2019 - 03/26/2020 Medical History Medical History Date Comments Irritable bowel syndrome Irritab le bowel disease Gastroesophageal reflux disease GERD Hypertension Heart murmur Hyperlipidemia Gallstones Diverticulitis Glaucoma Kidney stones Cataract removed 08-26-19 and 09-30-19 Pneumonia Family History Medical History Relation Name Comments Heart attack Father William Wade Other Other 1 No family histo ry of Cancer, colon; Other Other 2 No family histo ry of Celiac disease; Other Other 3 No family histo ry of Colon polyps; Other Other 4 No family histo ry of Crohn's disease; Other Other 5 No family histo ry of Ulcerative colitis; Hearing loss Paternal Grandfather Bryan Wade Stroke Paternal Grandfather Bryan Wade Relation Name Status Comments Father William Wade (Age 75) Mother (Age 82) Other 1 Other 2 Other 3 Other 4 Other 5 Paternal Grandfather Bryan Wade Social History Tobacco Use Types Packs/Day Years Used Date Smoking Tobacco: Never Smokeless Tobacco: Never Tobacco Cessation:Counseling Given: Not Answered Alcohol Use Standard Drinks/Week Comments No 0 (1 standard drink = 0.6 oz pur e alcohol) AUDIT-C Answer Date Recorded Q1: How often do you have a drink containing alc ohol? Monthly or less 04/26/2023 Q2: How many drinks containi ng alcohol do you have on a typical day when you are drinking? 1 or 2 04/26/2023 Q3: How often do you have si x or more drinks on one occasion? Never 04/26/2023 Personal Safety Answer Date Recorded Have you ever been in or are you currently in a harmful physical or emotional relationship or is someone making you feel afraid or unsafe? Denies 04/26/2023 Comments No Sex and Gender Information Value Date Recorded Sex Assigned at Not on file Legal Sex Female 11:43 PM OCCUPATIONAL THERAPY SPECIALIST Gender Identity Female 05/04/2022 5:47 PM OCCUPATIONAL THERAPY SPECIALIST Sexual Orientation Not on file Obstetrics History Last Filed Vital Signs Vital Sign Reading Time Taken Comments Blood Pressure 131/89 08/12/2024 11:17 AM CDT Pulse 97 08/12/2024 11:17 AM CDT Temperature 37 C (98.6 F) 04/29/2023 8:00 AM OCCUPATIONAL THERAPY SPECIALIST Respiratory Rate 17 04/29/2023 8:00 AM OCCUPATIONAL THERAPY SPECIALIST Oxygen Saturation 95% 08/12/2024 11:17 AM CDT Inhaled Oxygen Concentration - - Weight 58.6 kg (129 lb 3.2 oz) 08/12/2024 11:17 AM CDT Height 160 cm (5' 3) 08/12/2024 11:17 AM CDT Body Mass Index 22.89 08/12/2024 11:17 AM CDT Plan of Treatment Health Maintenance Due Date Last Done Comments Depression Screening 1940 Osteoporosis Screening-Bone Density Scan 1940 DTaP/Tdap/Td Vaccine (1 - Tdap) 1949 Hepatitis B Screening 1958 Well Visit 65+ 12/22/2003 Pneumococcal vaccine 65+ (2 of 2 - PPSV23) 10/28/2014 09/02/2014 Fall Risk Assessment 04/29/2024 04/29/2023 Zoster Vaccine Completed 05/08/2019, 03/05/2019 Influenza Vaccine Completed 01/03/2024, , 12/28/2022, Additional history exists Medical Devices Implanted Type Area Multimedia Production Assistant Device Identifier Shelf Expiration Date Model / Serial / Lot Interneer Angio-Seal Vip 6fr Closere Device [id number] - [id number] - [id number] Implanted:Qty: 1 on 04/26/2023 by Roosevelt Rudd MD PhD at [facility] Collagen Left: Common Femoral Artery Terumo [employer] Steffen 01/25/2024 [id number] / [id number] / [id number] [employer] Steffen Fineline Ii Sterox Ez 7fr 45cm Bipolar Active Fixation Atrium 4469 - [id number] - [id number] Implanted:Qty: 1 on 04/28/2023 by Kody Delvalle MD PhD at [facility] Lead Right: Atria [employer] Steffen 12/13/2024 4469 / [id number] / [employer] Steffen Fineline Ii Sterox Ez 1.7mm 52cm Bipolar Active Fixation Screw 4470 - [id number] - [id number] Implanted:Qty: 1 on 04/28/2023 by Kody Delvalle MD PhD at [facility] Lead Right: Ventricle [employer] Steffen 03/07/2025 4470 / [id number] / [employer] C.R.M. Accolade Latitude Nxt Pacesafe Easyview 4.45x5.02cm 2 Chamber Is1 L311 - [id number] - [id number] Implanted:Qty: 1 on 04/28/2023 by Kody Delvalle MD PhD at [facility] Pacemaker Left: Chest Wall [employer] C.R.M. 10/14/2023 L311 / [id number] / [employer] Valve Heart 23mm Jose 3 Transcatheter [id number] - [id number] - [id number] Implanted:Qty: 1 on 04/26/2023 by Roosevelt Rudd MD PhD at [facility] Prosthetic Valve Right: Aortic Valve [employer] 01/07/2026 [id number] / [id number] / [id number] [employer] Device Clsr Perclose Prostyle Sut-Mediatd Closure-Repair Sys 14237-22 - [id number] - [id number] Implanted:Qty: 1 on 04/26/2023 by Roosevelt Rudd MD PhD at [facility] Vascular Closure Device Right: Common Femoral Artery [employer] 11/24/2024 20306-18 / [id number] / [id number] [employer] Device Clsr Perclose Prostyle Sut-Mediatd Closure-Repair Sys 33322-92 - [id number] - [id number] Implanted:Qty: 1 on 04/26/2023 by Roosevelt Rudd MD PhD at [facility] Vascular Closure Device Right: Common Femoral Artery [employer] 11/24/2024 [id number] / [id number] / [id number] Insurance MEDICARE [employer] [place] [address] [place] [address] MEDICARE FOR LIFE Advance Directives For more information, please contact: [phone] * Full Code (Latest Code Status on File) Date Activated Date Inactivated Comments 04/26/2023 1:31 PM 04/29/2023 8:21 PM Care Teams Chief Growth Officer Relationship Specialty Start Date End Date Socorro Cox MD [address] [address] PCP - General 12/31/14 Doug Rosario MD [facility] [address] Consulting Physician Cardiology 04/29/23 Kody Delvalle MD PhD [address] [address] Referring Physician Cardiology 04/29/23
--- OUTSIDE RECORDS SUMMARY | 2024-10-03 10:05 | XMS_ITS | Encounter Summary ---
Author Organization [facility] Address [address] [facility] [place] [address] Care Team Providers Care Balance Assembler Name Role Phone Socorro Cox MD Primary Care Provider Encounter Details Date Type Department Care Team (Late st Contact Info) Description 04/11/2018 Lab Requisition [facility] [address] [facility] [place] [place] [id number] José [place] [address] Social History Tobacco Use Types Packs/Day Years Used Date Smoking Tobacco: Never Alcohol Use Standard Drinks/Week Comments Yes 0 (1 standard drink = 0.6 oz pur e alcohol) Drinks rarely, socially. Comments Unknown Sex and Gender Information Value Date Recorded Sex Assigned at Not on file Legal Sex Female 6:24 AM PROFESSOR OF HISTORICAL THEOLOGY Gender Identity Not on file Sexual Orientation Not on file documented as of this encounter Plan of Treatment Not on file documented as of this encounter Procedures Procedure Name Priority Date/Time Associated Diagnosis Comments DERMATOPATHOLOGY Routine 04/10/2018 12:0 0 AM PROFESSOR OF HISTORICAL THEOLOGY documented in this encounter Results * DERMATOPATHOLOGY (04/10/2018 12:00 AM PROFESSOR OF HISTORICAL THEOLOGY) Case Report Dermatopathology Report Case: [id number] Authorizing Provider: José Miguel Robert MD Collected: 04/10/2018 12:00 AM Pathologist: Reinaldo Varghese MD Received: 04/11/2018 11:34 AM Specimen: Skin, vertex scalp 2:22 PM [facility] DERMAT[facility]Y [facility] Final Diagnosis Specimen A. SKIN, vertex scalp: DERMAL SCAR (L90.5) (see microscopic description and comment) 2:22 PM [facility] DERMATOPATHOLOGY [facility]ORAT[facility] at [address] PROFESSOR OF HISTORICAL THEOLOGY Clinical History R/O ISK, BCC, SCC, scar. 2:22 PM [facility]ERMAT[facility] Gross Description Specimen A: Received is one formalin filled container labeled with the patient's name and designated vertex scalp. The specimen consists of a shave biopsy measuring [id number]. Jar 0. 2:22 PM [facility] DERMATOPATH[facility]Y [facility] Microscopic Description Specimen A. SKIN, vertex scalp: There are fibroblasts and collagen bundles oriented parallel to the skin surface with elongated blood vessels, some of which are oriented perpendicular to the skin surface. There is no evidence of epithelial dysplasia or malignancy in multiple deeper sections examined. 2:22 PM [facility]ERMATOPATH[facility] Disclaimer An external and internal positive and negative controls are appropriate for the histochemical, immunohistochemical and immunofluorescence stain(s) in this case (if any), except where stated explicitly. The performance characteristics of the stain(s) cited in this report were developed and its performance characteristic determined by the Dermatopathology Laboratory at [facility], directed by Dr. Alejandro Varghese. These tests need not be, and therefore are not, approved by the [place] Food and Drug Administration. The tests are used for clinical purposes. Billing Codes Specimen Charges Stain Charges 29867 1 2:22 PM [facility]ERMATOP[facility] Embedded Images 2:22 PM [facility] DERMATOP[facility]Y [facility] Pathology/Cytolog y TISSUE SPECIMEN FROM SKIN / Unknown 04/10/2018 04/11/2018 11:34 AM PROFESSOR OF HISTORICAL THEOLOGY José Miguel Robert MD LAB - PATHOLOGY/CYTOLOGY ORD ERABLES Final Result DERMATOPATHOLOGY LABORATORY [facility] - Department of Dermatology [address] [place] [address], 5th Floor Lab [address] [phone] documented in this encounter Visit Diagnoses Not on filedocumented in this encounter Care Teams Balance Assembler Relationship Specialty Start Date End Date Socorro Cox MD [address] [place] [phone] PCP - General Internal Medicine 04/29/19 documented as of this encounter
--- OUTSIDE RECORDS SUMMARY | 2024-10-03 10:05 | XMS_ITS | Referral Summary ---
Author Organization [facility] Address [address] [place] [address] Care Team Providers Care Bridge Opener Name Role Phone Socorro Cox MD Primary Care Provider [phone] Doug Rosario MD Unavailable Kody Delvalle MD PhD Unavailable [phone] Encounters Date Type Department Care Team Description 08/13/2024 Telephone [facility] Cardiology [facility] Medicine [address]th [place] [address] [place] [address] Raquel Corona 08/13/2024 Telephone [facility] Cardiology [facility] 8th [place] [address] [place] [address] Raquel Corona 08/12/2024 11:15 AM CDT Office Visit [facility] Cardiology [facility] 8th [place] [address] [place] [address] Kody Delvalle MD PhD Adjustment and management of cardiac pacemaker (Primary Dx); Complete heart block (HCC) 08/12/2024 10:45 AM CDT Ancillary Procedure [facility] Cardiology [facility] Medicine 8th [place] [address] [place] [address] CHB (complete heart block) (HCC) (Primary Dx); Fitting or adjustment of cardiac pacemaker from Last 3 Months Allergies Active Allergy Reactions Criticality Noted Date [...] ons:Allergic Rhinitis Take 1 capsule by mouth 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 before breakfast Active aspirin 81 mg chewable [...] mg capsule Active pyrroloquinolin e quinone disod (JRS04-BVPESLIJ UINOLINE QUINONE ORAL) Active multivitamin with iron [...] 04/26/2023 Assessment & Plan (04/26/2023 1:23 PM VIDEO PRODUCER): S/p TAVR on 04/26 DAPT for one month, then ASA 81 mg daily indefinitely PT/OT evaluation tomorrow AM CXR, EKG, TTE and labs tomorrow AM Monitor on telemetry for any evidence of AV block Encounter for examination fo r normal comparison and control in clinical research program 04/07/2023 Nonrheumatic aortic valve stenosis 08/25/2020 Immunizations Immunization Administration Dates Next Due Influenza, Unspecified 12/28/2022 Social History Tobacco Use Types Packs/Day Years [...] on file Legal Sex Female 11:43 PM VIDEO PRODUCER Gender Identity Female 05/04/2022 5:47 PM VIDEO PRODUCER Sexual Orientation Not on file Last Filed Vital Signs Vital Sign Reading Time Taken Comments Blood Pressure 131/89 08/12/2024 11:17 AM CDT Pulse 97 08/12/2024 11:17 AM CDT Temperature 37 C (98.6 F) 04/29/2023 8:00 AM VIDEO PRODUCER Respiratory Rate 17 04/29/2023 8:00 AM VIDEO PRODUCER Oxygen Saturation 95% 08/12/2024 11:17 AM CDT Inhaled Oxygen Concentration - - Weight 58.6 kg (129 lb 3.2 oz) 08/12/2024 11:17 AM CDT Height 160 cm (5' 3) 08/12/2024 11:17 AM CDT Body Mass Index 22.89 08/12/2024 11:17 AM CDT Plan of Treatment Not on file Medical Devices Implanted Type Area Loss Prevention Supervisor Device Identifier Shelf Expiration Date Model / Serial / Lot TerDealCloud Steffen Angio-Seal Vip 6fr Closere Device [id number] - [id number] - [id number] Implanted:Qty: 1 on 04/26/2023 by Roosevelt Rudd MD PhD at [facility] Collagen Left: Common Femoral Artery TerumFibroGen Steffen 01/25/2024 [id number] / [id number] / [id number] [employer] Steffen Fineline Ii Sterox Ez 7fr 45cm Bipolar Active Fixation Atrium 4469 - [id number] - [id number] Implanted:Qty: 1 on 04/28/2023 by Kody Delvalle MD PhD at [facility] Lead Right: Atria [employer] Steffen 12/13/2024 4469 / [id number] / [employer] Steffen Fineline Ii Sterox Ez 1.7mm 52cm Bipolar Active Fixation Screw 4470 - [id number] - [id number] Implanted:Qty: 1 on 04/28/2023 by Kody Delvalle MD PhD at [facility] Lead Right: Ventricle [employer] Steffen 03/07/2025 4470 / [id number] / [employer] C.R.M. Accolade Latitude Nxt Pacesafe Easyview 4.45x5.02cm 2 Chamber Is1 L311 - [id number] - [id number] Implanted:Qty: 1 on 04/28/2023 by Kody Delvalle MD PhD at [facility] Pacemaker Left: Chest Wall [employer] C.R.M. 10/14/2023 L311 / [id number] / [employer] Valve Heart 23mm Jose 3 Transcatheter [id number] - [id number] - [id number] Implanted:Qty: 1 on 04/26/2023 by Roosevelt Rudd MD PhD at [facility] Prosthetic Valve Right: Aortic Valve [employer] 01/07/2026 [id number] / [id number] / [id number] [employer] Device Clsr Perclose Prostyle Sut-Mediatd Closure-Repair Sys 38822-92 - [id number] - [id number] Implanted:Qty: 1 on 04/26/2023 by Roosevelt Rudd MD PhD at [facility] Vascular Closure Device Right: Common Femoral Artery [employer] 11/24/2024 11810-30 / [id number] / [id number] [employer] Device Clsr Perclose Prostyle Sut-Mediatd Closure-Repair Sys 56685-25 - [id number] - [id number] Implanted:Qty: 1 on 04/26/2023 by Roosevelt Rudd MD PhD at [facility] Vascular Closure Device Right: Common Femoral Artery [employer] 11/24/2024 03421-35 / [id number] / [id number] Insurance MEDICARE [employer] MEDICARE FOR LIFE MEDICARE FOR LIFE MEDICARE FOR LIFE Advance Directives For more information, please contact: [phone] * Full Code (Latest Code Status on File) Date Activated Date Inactivated Comments 04/26/2023 1:31 PM 04/29/2023 8:21 PM Care Teams Bridge Opener Relationship Specialty Start Date End Date Socorro Cox MD [address] [employer] [facility] [address] [place] [address] PCP - General 12/31/14 Doug Rosario MD [address] [employer] [address] [place] [address] Consulting Physician Cardiology 04/29/23 Kody Delvalle MD PhD [facility] [place] [address] Referring Physician Cardiology 04/29/23
--- OUTSIDE RECORDS SUMMARY | 2024-10-03 10:05 | XMS_ITS | Clinical Summary ---
Author Organization [facility] Address [address] [place] [address] Care Team Providers Care Conference Producer Name Role Phone Socorro Cox MD Primary Care Provider Source Comments [facility],non-owned Affiliates and Associated Physician Practices is amultiple site organization consisting of ambulatory clinics and hospital sitesin [place], [place] and [place]. This disclosure is being madepursuant to the Care Everywhere program and may not contain all information available regarding this patient. Last updated 17.[facility] Allergies No known active allergies Medications * Be aware that medications may not be up to date on this document. Alwaysverify current medications with the patient. mesalamine EC (LIALDA) 1.2 GM tablet Take 4.8 g by mouth daily with breakfast. Active omeprazole (PRILOSEC) 40 MG capsule Take 40 mg by mouth daily before breakfast. Active atorvastatin (LIPITOR) 10 MG tablet Take 10 mg by mouth at bedtime. Active valacyclovir (VALTREX) 500 MG tablet Take 500 mg by mouth daily. 03/04/2010 Active tramadol (ULTRAM) 50 MG tablet Take 1 Tab by mouth every 6 hours as needed for Pain. 30 Tab 0 03/06/2010 Active cyclobenzaprine (FLEXERIL) 10 MG tablet Take 1 Tab by mouth 3 times daily as needed for Muscle Spasms. 15 Tab 0 02/04/2014 Active Active Problems Problem Noted Date Diagnosed Date Fall 02/04/2014 Neck pain 02/04/2014 Low back pain 02/04/2014 Bronchopneumonia 03/04/2010 Esophagitis 02/04/2010 Lymphocytic colitis 02/04/2010 Other and unspecified hyperlipidemia Social History Tobacco Use Types Packs/Day Years Used Date Smoking Tobacco: Never Alcohol Use Standard Drinks/Week Comments Yes 0 (1 standard drink = 0.6 oz pur e alcohol) Drinks rarely, socially. Comments Unknown Sex and Gender Information Value Date Recorded Sex Assigned at Not on file Legal Sex Female 6:24 AM DENTAL ASSISTANT Gender Identity Not on file Sexual Orientation Not on file Last Filed Vital Signs Vital Sign Reading Time Taken Comments Blood Pressure 149/89 02/04/2014 12:52 PM DENTAL ASSISTANT Pulse 67 02/04/2014 12:52 PM DENTAL ASSISTANT Temperature 36.4 C (97.6 F) 02/04/2014 10:37 AM DENTAL ASSISTANT Respiratory Rate 20 02/04/2014 10:37 AM DENTAL ASSISTANT Oxygen Saturation 100% 02/04/2014 10:37 AM DENTAL ASSISTANT Inhaled Oxygen Concentration - - Weight 64.9 kg (143 lb) 02/04/2014 10:37 AM DENTAL ASSISTANT Height 160 cm (5' 2.99) 02/04/2014 10:37 AM DENTAL ASSISTANT Body Mass Index 25.34 02/04/2014 10:37 AM DENTAL ASSISTANT Plan of Treatment Health Maintenance Due Date Last Done Comments BONE DENSITY TESTING 1938 DTAP/TDAP/TD VACCINES (1 - Tdap) 1957 PNEUMOCOCCAL VACCINE 50+ (1 of 1 - PCV) 1988 ZOSTER VACCINE (1 of 2) 1988 Respiratory Syncytial Virus (RSV) Vaccine Pt: or over 60 yrs (1 - 1-dose 75+ series) 2013 COVID-19 VACCINE ( - 2023-2 5 season) 2023 DEPRESSION SCREENING 03/27/2024 INFLUENZA VACCINE (#1) 2024 HEPATITIS B VACCINE Aged Out No longe r eligible based on patient's age to complete this topic HIB VACCINE Aged Out No longer eligi ble based on patient's age to complete this topic HPV VACCINE Aged Out No longer eligi ble based on patient's age to complete this topic MENINGOCOCCAL (Group B) VACC INE SHARED DECISION-MAKING Aged Out No longer eligibl e based on patient's age to complete this topic MENINGOCOCCAL GROUPS A/C/Y/W VACCINE Aged Out No longer eligible b ased on patient's age to complete this topic Insurance MEDICARE MEDICARE Advance Directives * Full Code (Latest Code Status on File) Date Activated Date Inactivated Comments 03/04/2010 5:21 PM 03/07/2010 6:29 AM Care Teams Conference Producer Relationship Specialty Start Date End Date Socorro Cox MD [address] [place] [phone] PCP - General Internal Medicine 04/29/19
--- OUTSIDE RECORDS SUMMARY | 2024-10-03 10:05 | XMS_ITS | Encounter Summary ---
Author Organization [facility] Address [address] [facility] [place] [address] Care Team Providers Care Odd Ticket Clerk Name Role Phone Socorro Cox MD Primary Care Provider Encounter Details Date Type Department Care Team (Late st Contact Info) Description 09/09/2020 Lab Requisition [facility] [address] [place] [address] José Miguel Robert MD [address] [place] [id number] Social History Tobacco Use Types Packs/Day Years Used Date Smoking Tobacco: Never Alcohol Use Standard Drinks/Week Comments Yes 0 (1 standard drink = 0.6 oz pur e alcohol) Drinks rarely, socially. 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 Gender Identity Not on file Sexual Orientation Not on file documented as of this encounter Plan of Treatment Not on file documented as of this encounter Procedures Procedure Name Priority Date/Time Associated Diagnosis Comments DERMATOPATHOLOGY Routine 09/08/2020 12:0 0 AM CDT documented in this encounter Results * DERMATOPATHOLOGY (09/08/2020 12:00 AM CDT) Case Report Dermatopathology Report Case: [id number] Authorizing Provider: José Miguel Robert MD Collected: 09/08/2020 12:00 AM Ordering Location: [facility] Received: 09/09/2020 01:12 PM Pathologist: Alejandrina Ruiz MD Specimen: Skin, left superior antihelix 12:33 PM CDT DERMATOPATHOLOGY LABORATORY Final Diagnosis Specimen A. 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 12:33 PM CDT DERMATOPATHOLOGY LABORATORY Gross Description Specimen A: Received is one formalin filled container labeled with the patient's name and designated left superior antihelix. The specimen consists of a shave biopsy (2 pieces) measuring [id number] & 8m2q0do. Jar 0. 12:33 PM CDT DERMATOPATHOLOGY LABORATORY Microscopic Description Specimen A. SKIN, left superior antihelix: There is epidermal hyperplasia overlying dilated blood vessels and fibroplasia. 12:33 PM CDT DERMATOPATHOLOGY LABORATORY Disclaimer An external and internal positive and negative controls are appropriate for the histochemical, immunohistochemical and immunofluorescence stain(s) in this case (if any), except where stated explicitly. The performance characteristics of the stain(s) cited in this report were developed and its performance characteristic determined by the Dermatopathology Laboratory at [facility], directed by Dr. Alejandro Varghese. These tests need not be, and therefore are not, approved by the [place] Food and Drug Administration. The tests are used for clinical purposes. Billing Codes Specimen Charges Stain Charges 27887 1 1 12:33 PM CDT DERMATOPATHOLOGY LABORATORY Embedded Images 12:33 PM CDT DERMATOPATHOLOGY LABORATORY Pathology/Cytolog y TISSUE SPECIMEN FROM SKIN / Unknown 09/08/2020 09/09/2020 1:12 PM CDT us José Miguel Robert MD LAB - PATHOLOGY/CYTOLOGY ORD ERABLES Final Result DERMATOPATHOLOGY LABORATORY [facility] - Department of Dermatology [address], [address] [phone] documented in this encounter Visit Diagnoses Not on filedocumented in this encounter Care Teams Odd Ticket Clerk Relationship Specialty Start Date End Date Socorro Cox MD [address] [phone] PCP - General Internal Medicine 04/29/19 documented as of this encounter
[2024-10-03 10:29] VITALS: BP 135/82; PULSE 87; RESP 19; TEMP 36.4; O2SAT 98
--- NOTE | 2024-10-03 11:50 | ED_ITS ---
HPI - Back Pain/Injury General Chief Complaint: Back Pain/Injury Stated Complaint: right sided sciatic pain x4days Time Seen by Provider: 10/03/24 11:41 History of Present Illness HPI Narrative: Pt presents with pain in right buttock and low back radiating down back of right leg to calf for several days, Pt denies problems with bladder or bowels. Pt has some intermittent tingling to left leg but none now. Pt denies weakness. Related Data Home Medications ?Medication ?Instructions ?Recorded ?Confirmed ?Last Taken ?Type atorvastatin 10 mg tablet 10 mg PO HS 06/30/21 11/20/23 02/10/23 History valacyclovir 500 mg tablet 500 mg PO 4XW 06/30/21 11/20/23 02/10/23 History Lactobacillus acidophilus 10 1 cell PO DAILY 02/10/23 11/20/23 02/10/23 History billion cell capsule buspirone 5 mg tablet 5 mg PO TID 02/10/23 11/20/23 02/10/23 History coenzyme Q10 100 mg capsule 100 mg PO DAILY 02/10/23 11/20/23 02/10/23 History famotidine 20 mg tablet 20 mg PO DAILY 02/10/23 11/20/23 02/10/23 History gabapentin 300 mg capsule 300 mg PO DAILY 02/10/23 11/20/23 02/10/23 History garlic 1 cap PO DAILY 02/10/23 11/20/23 02/10/23 History inulin-sorbitol 2 gram chewable 1 tablet PO DAILY 02/10/23 11/20/23 02/10/23 History tablet loratadine 10 mg tablet 10 mg PO DAILY 02/10/23 11/20/23 02/10/23 History magnesium oxide 400 mg PO DAILY 02/10/23 11/20/23 02/10/23 History melatonin 5 mg capsule 5 mg PO DAILY 02/10/23 11/20/23 02/10/23 History multivit with minerals-iron 18 1 tablet PO DAILY 02/10/23 11/20/23 02/10/23 History mg-folic ac 400 mcg-vit K 25 mcg tablet (Adults Multivitamin) niacin 50 mg tablet 50 mg PO DAILY 02/10/23 11/20/23 02/10/23 History Allergies Allergy/AdvReac Type Severity Reaction Status Date / Time aluminum AdvReac Mild Rash Verified 10/03/24 10:34 Review of Systems Review of Systems: All systems reviewed & are unremarkable except as noted in HPI and below PMFSH Past Medical History Medical History Anxiety Depression Hyperlipidemia Hypertension Irritable bowel syndrome Renal disease Severe aortic stenosis Surgical History Surgical History H/O repair of rotator cuff History of orthopedic surgery Hx of cholecystectomy Family History Family History Father Acute myocardial infarction Mother Tao palsy Grandparent Cerebrovascular accident Son Cancer Social History Social History Social History: She lives with her . She had 3 children but now only has the 2 children. 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 code Smoking status: Never smoker Second hand tobacco smoke exposure: No Alcohol intake: never Substance use: never Substance use type: does not use Lack of Transportation: No Lack of Food: Never True Current Housing: I Have Housing Concerned About Future Housing: No Difficulty Paying Gas/Electric Bills: No Difficulty Paying for Meds: No Currently Unemployed: No Education: Bachelor's Degree Difficulty w/ Childcare or Family Care: No Living arrangements: with family Spiritual care concerns: No Course Vital Signs Vital signs: Vital Signs Temperature 97.6 F 10/03/24 10:29 Pulse Rate 87 10/03/24 10:29 Respiratory Rate 19 10/03/24 10:29 Blood Pressure 135/82 10/03/24 10:29 Pulse Oximetry 98 10/03/24 10:29 Oxygen Delivery Room Air 10/03/24 10:29 Temperature 97.6 F 10/03/24 10:29 Pulse Rate 68 10/03/24 12:07 Respiratory Rate 19 10/03/24 12:07 Blood Pressure 139/84 10/03/24 12:07 Pulse Oximetry 98 10/03/24 12:07 Oxygen Delivery Room Air 10/03/24 10:29 MDM - Back Pain/Injury MDM Narrative Medical decision making narrative: seems like sciatica. will send home on prednisone wean. Pt has a few tramadol to bridge. Differential Diagnosis Differential diagnosis: Likely sciatica and strain of lumbar region Discharge Plan Discharge Clinical Impression: Sciatica Patient Disposition: Home Condition: Stable Instructions: Antibiotic Form, Sciatica (ED) Patient Language: Amharic Prescriptions: New prednisone 10 mg tablet See Taper PO DAILY 15 Days Qty: 45 0RF Taper: Prednisone Taper from 50 mg;15 days 50 mg DAILY for 3 Days and 0 Hour 40 mg DAILY for 3 Days and 0 Hour 30 mg DAILY for 3 Days and 0 Hour 20 mg DAILY for 3 Days and 0 Hour 10 mg DAILY for 3 Days and 0 Hour tramadol 50 mg tablet 50 mg PO Q6H PRN (Reason: pain) Qty: 7 0RF No Action atorvastatin 10 mg tablet 10 mg PO HS valacyclovir 500 mg tablet 500 mg PO 4XW buspirone 5 mg tablet 5 mg PO TID niacin 50 mg Tablet 50 mg PO DAILY famotidine 20 mg tablet 20 mg PO DAILY garlic Capsule 1 cap PO DAILY gabapentin 300 mg Capsule 300 mg PO DAILY loratadine 10 mg Tablet 10 mg PO DAILY coenzyme Q10 100 mg Capsule 100 mg PO DAILY inulin-sorbitol 2 gram Tablet,Chewable 1 tablet PO DAILY melatonin 5 mg Capsule 5 mg PO DAILY Lactobacillus acidophilus 10 billion cell Capsule 1 cell PO DAILY Adults Multivitamin 18 mg iron-400 mcg-25 mcg Tablet 1 tablet PO DAILY magnesium oxide 400 mg magnesium Tablet 400 mg PO DAILY Follow-up/Referrals: PHYSICIAN,WASTE DISPOSAL PLANT OPERATOR [Primary Care Provider] -
--- OUTSIDE RECORDS SUMMARY | 2024-10-03 11:51 | XMS_ITS | Data Portability ---
Author Organization [employer] [employer] [facility] [employer], Main Office Address [address] [place] [address] Care Team Providers Care Invertebrate Paleontologist Name Role Phone TERRY BOWSER Primary Care Provider [phone] Assessment No assessment recorded. Plan of Treatment Reminders Order Date Submit Date Provider Last Modified By Organization Details Last Modified Time Details Appointments None recorded. Lab None recorded. Referral None recorded. Procedures marii maneuver (PROC) 2024 025 [facility], [address], [place], [address], 04:21:07 Surgeries None recorded. Imaging None recorded. Medication Orders None recorded. Patient TargetsNo targets recorded. Patient Instructions Encounter Date Encounter Id Patient Instructions Last Modified By Organization Details Last Modified Time 07/16/2024 [id number] Advised to continue use of meclizine for symptom management. PT referral sent for Baljinder-Hallpike testing and Marii maneuvers if indicated. [email or web address] Not available 07/16/2024 12:25:39 Reason for Referral None Reported. Problems Name Problem SNOMED Code Status Onset Date Resolution Date Notes Provider Name and Address Organization Details Recorded Time Benign paroxysmal positional vertigo 962693907 Active 025 Yas Juarez RN null, [employer] 12:08:21 Problem Notes None recorded. Procedures Surgical History Date Name Laterality Status Provider Name and Address Organization Details Recorded Time tonsillectomy completed Yas pan RN [facility] [employer] 07/16/2024 11:43:14 Imaging Results None recorded. Procedure Notes None recorded. Medical Equipment None Reported. Medications Name Sig Start Date Stop Date Status Note LastModified by Organization Details LastModified Time aspirin 81 mg tablet,efraín yed release Take 1 tablet every day by oral route. active Not Available Not Available No t Available garlic 1,000 mg capsule Take by oral route. active Not Available Not Available No t Available famotidine 20 mg tablet Take 1 tablet twice a day by oral route. active Not Available Not Available No t Available meclizine 25 mg tablet TAKE 1 TABLET BY MOUTH THREE TIMES DAILY NEEDED active Not Available Not Available No t Available loratadine 10 mg tablet Take 1 tablet every day by oral route. active Not Available Not Available No t Available amoxicillin 875 mg-potassiu m clavulanate 125 mg tablet TAKE 1 TABLET BY MOUTH TWICE DAILY FOR 10 DAYS 07/16 completed Not Available Not Available Not Available astragalus root 470 mg capsule Take by oral route. active Not Available Not Available No t Available magnesium active Not Available Not Shanna ilable Not Available Aleve active Not Available Not Availa ble Not Available Flonase active Not Available Not Avail able Not Available senna active Not Available Not Availa ble Not Available Pycnogenol active 100MG Not Available Not Av ailable Not Available fiber active Not Available Not Availa ble Not Available multivitami n active Not Available Not Available Not Available melatonin 5 mg capsule Take by oral route. active Not Available Not Available No t Available niacin 500 mg capsule Take by oral route. active Not Available Not Available No t Available benfotiamin e active Not Available Not Available Not Available Paxlovid 300 mg (150 mg x 2)-100 mg tablets in a dose pack TK 2 NIRMATREL VIR TS AND 1 RITONAVIR T TOGETHER PO TWICE DAILY FOR 5 DAYS 07/16 completed Not Available Not Available Not Available bergamot extract 500 mg capsule Take by oral route. active Not Available Not Available No t Available Vitals Date Recorded Body weight Body mass index (BMI) Body height Body temperature Provider Name and Address Organization Details Last Updated DateTime 07/16/2024 12213.45 g 23.5 kg/m2 158.75 cm 98 [degF] Yas Juarez RN [place] - [facility] [employer] 07/16/2024 11:49:16 Social History None recorded. Functional Status Question Answer Note LastModified by Organizat ion Details LastModified Time What is your level of alcohol consumption? Occasional [email or web address] Information not available 07/16/2024 Mental Status None recorded. Family History Nothing Reported Notes:NO ENT Medical History Condition Response PACEMAKER Y HEART DISEASE/HEART PROBLEMS Y Gynecological HistoryNo gynecological history recorded. Obstetrics History GPAL:G 0 P 0 0 0 0 Past Encounters Encounter ID Performer Location Encounter Start Date Encounter Closed Date Diagnosis/Indication Diagnosis SNOMED-CT Code Diagnosis ICD10 Code Diagnosis Note [id number] Tom Burnham MD [facility] [address] [place] [address] 07/16/2024 11:27:06 07/16/2024 12:26:11 Benign paroxysmal positional vertigo 812233081 H81.10 Health Concerns Section Related Observation LastModified by Organization Detai ls LastModified Time None Recorded Concern Status LastModified by Organization Details LastModified Time None Recorded Advance Directives Directive None Recorded Payers Insurance Date Sequence Insurance Name Policy Number Policy Angulo Covered Member ID Angulo Member ID Guarantor Name 07/16/2024 2 FOR LIFE ( - MEDICARE SUPPLEMENT) Lois Berg [id number] Lois Berg 07/16/2024 1 [place] Lois Berg [id number] Lois Berg Notes Date Note Type Note Provider Name and Address Organization Details Recorded Time 07/16/2024 text/html This patient has a past medical history significant for a CHB s/p pacemaker placement and AV stenosis s/p TAVR. she reports having vertigo like symptoms for approximately 1.5 years. She reports on 04/26/2023 she had a TAVR completed and developed a complete heart block postoperatively in which a pacemaker was then placed. She had gone to cardiac rehab. She reports that several weeks after that she ended up being sent to the ER with a hypoglycemic episode on 06/29/2023. She reports that her blood pressure this morning was 115/75. She states that when she is turning her head or bending over aggravates his symptoms. She has been using diphenhydramine and meclizine with some relief of her symptoms. She notes that she was seen by a physical therapist over 1 year ago who had said that she had some residual motion sickness. She does report that her cardiology team has ruled out any cardiac causes of her vertigo. Yas Devries, FINGER BUFF SEWER [address], [place], [address], [place] - [facility] 07/16/2024 12:25:42 OBGyn Episode No OBEpisode recorded.
--- OUTSIDE RECORDS SUMMARY | 2024-10-03 11:51 | XMS_ITS | Encounter Summary ---
Author Organization [facility] Address [address] [place] [address] Care Team Providers Care Thumb Sewer Name Role Phone Socorro Cox MD Primary Care Provider Encounter Details Date Type Department Care Team (Late st Contact Info) Description 09/09/2020 Lab Requisition [facility] Derm[facility] Lab [address] [place] [address] José Miguel Robert MD [address] [place] [address] Social History Tobacco Use Types Packs/Day Years Used Date Smoking Tobacco: Never Alcohol Use Standard Drinks/Week Comments Yes 0 (1 standard drink = 0.6 oz pur e alcohol) Drinks rarely, socially. 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 Gender Identity Not on file Sexual Orientation Not on file documented as of this encounter Plan of Treatment Not on file documented as of this encounter Procedures Procedure Name Priority Date/Time Associated Diagnosis Comments DERMATOPATHOLOGY Routine 09/08/2020 12:0 0 AM CDT documented in this encounter Results * DERMATOPATHOLOGY (09/08/2020 12:00 AM CDT) Case Report Dermatopathology Report Case: [id number] Authorizing Provider: José Miguel Robert MD Collected: 09/08/2020 12:00 AM Ordering Location: [facility] Lab Received: 09/09/2020 01:12 PM Pathologist: [...] of a shave biopsy (2 pieces) measuring 35l7a5su & 9z6b3ra. Jar 0. 12:33 PM CDT DERMATOPATHOLOGY LABORATORY [...] characteristic determined by the Dermatopathology Laboratory at [facility], directed by Dr. Alejandro Varghese. These tests need not be, and therefore are not, approved by the [place] Food and Drug Administration. The tests are used for clinical purposes. Billing Codes Specimen Charges Stain Charges 81665 1 1 12:33 PM CDT DERMATOPATHOLOGY LABORATORY Embedded Images 12:33 PM CDT DERMATOPATHOLOGY LABORATORY Pathology/Cytolog y TISSUE SPECIMEN FROM SKIN / Unknown 09/08/2020 09/09/2020 1:12 PM CDT us José Miguel Robert MD LAB - PATHOLOGY/CYTOLOGY ORD ERABLES Final Result DERMATOPATHOLOGY LABORATORY [facility] - Department of Dermatology [address], [address] [phone] documented in this encounter Visit Diagnoses Not on filedocumented in this encounter Care Teams Thumb Sewer Relationship Specialty Start Date End Date Socorro Cox MD [address] [phone] PCP - General Internal Medicine 04/29/19 documented as of this encounter
--- OUTSIDE RECORDS SUMMARY | 2024-10-03 11:51 | XMS_ITS | Referral Summary ---
Author Organization [facility] Address [address] [place] [address] Care Team Providers Care Him Specialist Name Role Phone Socorro Cox MD Primary Care Provider [phone] Doug Rosario MD Unavailable Kody Delvalle MD PhD Unavailable [phone] Encounters Date Type Department Care Team Description 08/13/2024 Telephone [facility] Cardiology [facility], [facility] Medicine 8th [place] [address] [place] [address] Raquel Corona 08/13/2024 Telephone [facility] Cardiology [facility], [facility] 8th [place] [address] [place] [address] Raquel Corona 08/12/2024 11:15 AM CDT Office Visit [facility] Cardiology [facility], [facility] 8th [place] [address] [place] [address] Kody Delvalle MD PhD Adjustment and management of cardiac pacemaker (Primary Dx); Complete heart block (HCC) 08/12/2024 10:45 AM CDT Ancillary Procedure [facility] Cardiology [facility], [facility] Medicine 8th [place] [address] [place] [address] CHB (complete heart block) (HCC) (Primary Dx); [...] Rhinitis Take 1 capsule by mouth early learning teacher before breakfast Active aspirin 81 mg [...] mg capsule Active pyrroloquinolin e quinone disod (IXJ97-MIOLDKZT UINOLINE QUINONE ORAL) Active multivitamin with iron [...] 04/26/2023 Assessment & Plan (04/26/2023 1:23 PM POULTRY FARM MANAGER): S/p TAVR on 04/26 DAPT for one [...] on file Legal Sex Female 11:43 PM POULTRY FARM MANAGER Gender Identity Female 05/04/2022 5:47 PM POULTRY FARM MANAGER Sexual Orientation Not on file Last Filed Vital Signs Vital Sign Reading Time Taken Comments Blood Pressure 131/89 08/12/2024 11:17 AM CDT Pulse 97 08/12/2024 11:17 AM CDT Temperature 37 C (98.6 F) 04/29/2023 8:00 AM POULTRY FARM MANAGER Respiratory Rate 17 04/29/2023 8:00 AM POULTRY FARM MANAGER Oxygen Saturation 95% 08/12/2024 11:17 AM CDT Inhaled Oxygen Concentration - - Weight 58.6 kg (129 lb 3.2 oz) 08/12/2024 11:17 AM CDT Height 160 cm (5' 3) 08/12/2024 11:17 AM CDT Body Mass Index 22.89 08/12/2024 11:17 AM CDT Plan of Treatment Not on file Medical Devices Implanted Type Area Digital Engineer Device Identifier Shelf Expiration Date Model / Serial / Lot TernexTune Steffen Angio-Seal Vip 6fr Closere Device 160254 - [id number] - [id number] Implanted:Qty: 1 on 04/26/2023 by Roosevelt Rudd MD PhD at [facility] Collagen Left: Common Femoral Artery TerumVerenium Steffen 01/25/2024 [id number] / [id number] / [id number] [employer] Steffen Fineline Ii Sterox Ez 7fr 45cm Bipolar Active Fixation Atrium 4469 - [id number] - [id number] Implanted:Qty: 1 on 04/28/2023 by Kody Delvalle MD PhD at [facility] Lead Right: Atria [employer] Steffen 12/13/2024 4469 / [id number] / Law[employer] Steffen Fineline Ii Sterox Ez 1.7mm 52cm Bipolar Active Fixation Screw 4470 - [id number] - [id number] Implanted:Qty: 1 on 04/28/2023 by Kody Delvalle MD PhD at [facility] Lead Right: Ventricle [employer] Steffen 03/07/2025 4470 / [id number] / Lawley [employer] C.R.M. Accolade Latitude Nxt Pacesafe Easyview 4.45x5.02cm 2 Chamber Is1 L311 - [id number] - [id number] Implanted:Qty: 1 on 04/28/2023 by Kody Delvalle MD PhD at [facility] Pacemaker Left: Chest Wall [employer] C.R.M. 10/14/2023 L311 / [id number] / Boyer [employer]esciences Valve Heart 23mm Jose 3 Transcatheter 8125lah01z - [id number] - [id number] Implanted:Qty: 1 on 04/26/2023 by Roosevelt Rudd MD PhD at [facility] Prosthetic Valve Right: Aortic Valve [employer] 01/07/2026 5553MDO1 / [id number] / [id number] Sheldon Vascular Device Clsr Perclose Prostyle Sut-Mediatd Closure-Repair Sys 79364-15 - [id number] - [id number] Implanted:Qty: 1 on 04/26/2023 by Roosevelt Rudd MD PhD at [facility] Vascular Closure Device Right: Common Femoral Artery [employer] 11/24/2024 40523-52 / [id number] / [id number] Sheldon Vascular Device Clsr Perclose Prostyle Sut-Mediatd Closure-Repair Sys 47379-39 - [id number] - [id number] Implanted:Qty: 1 on 04/26/2023 by Roosevelt Rudd MD PhD at [facility] Vascular Closure Device Right: Common Femoral Artery [employer] 11/24/2024 45926-37 / [id number] / [id number] Insurance MEDICARE [facility] Address: [address] [address] [place] [address] [employer] MEDICARE FOR LIFE MEDICARE FOR LIFE MEDICARE [facility] Address: [facility] [address] [place] [address] FOR LIFE Advance Directives For more information, please contact: [phone] * Full Code (Latest Code Status on File) Date Activated Date Inactivated Comments 04/26/2023 1:31 PM 04/29/2023 8:21 PM Care Teams Him Specialist Relationship Specialty Start Date End Date Socorro Cox MD [address] [facility] [address] [place] [address] PCP - General 12/31/14 Doug Rosario MD [address] [place] [address] Consulting Physician Cardiology 04/29/23 Kody Delvalle MD PhD [facility] [place] [address] Referring Physician Cardiology 04/29/23
--- OUTSIDE RECORDS SUMMARY | 2024-10-03 11:51 | XMS_ITS | Clinical Summary ---
Author Organization [facility] Address [address] [place] [address] Care Team Providers Care Meat Lugger Name Role Phone Socorro Cox MD Primary Care Provider [phone] Doug Rosario MD Unavailable Kody Delvalle MD PhD Unavailable Allergies Active [...] ons:Allergic Rhinitis Take 1 capsule by mouth organizational consultant before breakfast Active aspirin 81 mg chewable [...] mg capsule Active pyrroloquinolin e quinone disod (HWV80-UPHAJKJL UINOLINE QUINONE ORAL) Active multivitamin with iron [...] 04/26/2023 Assessment & Plan (04/26/2023 1:23 PM ENVIRONMENTAL HEALTH SANITARIAN): S/p TAVR on 04/26 DAPT for one month, then ASA 81 mg daily indefinitely PT/OT evaluation tomorrow AM CXR, EKG, TTE and labs tomorrow AM Monitor on telemetry for any evidence of AV block Encounter for examination fo r normal comparison and control in clinical research program 04/07/2023 Nonrheumatic aortic valve stenosis 08/25/2020 Encounters Date Type Department Care Team Description 08/13/2024 Telephone [facility] Cardiology Formerly [facility] Advanced Medicine 8th [place] [address] [place] [address] Raquel Corona 08/13/2024 Telephone [facility] Cardiology [facility] Advanced Medicine 8th [place] [address] [place] [address] Raquel Corona 08/12/2024 11:15 AM CDT Office Visit [facility] Cardiology [address] [place] [address] 8th [place] [address] [place] [address] Kody Delvalle MD PhD Adjustment and management of cardiac pacemaker (Primary Dx); Complete heart block (HCC) 08/12/2024 10:45 AM CDT Ancillary Procedure [facility] Cardiology [address] [place] [address] 8th [place] [address] [place] [address] CHB (complete heart block) (HCC) (Primary Dx); [...] on file Legal Sex Female 11:43 PM ENVIRONMENTAL HEALTH SANITARIAN Gender Identity Female 05/04/2022 5:47 PM ENVIRONMENTAL HEALTH SANITARIAN Sexual Orientation Not on file Obstetrics History Last Filed Vital Signs Vital Sign Reading Time Taken Comments Blood Pressure 131/89 08/12/2024 11:17 AM CDT Pulse 97 08/12/2024 11:17 AM CDT Temperature 37 C (98.6 F) 04/29/2023 8:00 AM ENVIRONMENTAL HEALTH SANITARIAN Respiratory Rate 17 04/29/2023 8:00 AM ENVIRONMENTAL HEALTH SANITARIAN Oxygen Saturation 95% 08/12/2024 11:17 AM CDT [...] history exists Medical Devices Implanted Type Area Steward/Stewardess [employer] Car Device Identifier Shelf Expiration Date Model / Serial / Lot NeuMedics Angio-Seal Vip 6fr Closere Device 044139 - [id number] - [id number] Implanted:Qty: 1 on 04/26/2023 by Roosevelt Rudd MD PhD at [facility] [place] [facility] Collagen Left: Common Femoral Artery Terumo Seer Steffen 01/25/2024 968709 / [id number] / [id number] Violet [employer] Steffen Fineline Ii Sterox Ez 7fr 45cm Bipolar Active Fixation Atrium 4469 - [id number] - [id number] Implanted:Qty: 1 on 04/28/2023 by Kody Delvalle MD PhD at [facility] [place] [facility] Lead Right: Atria [employer] Steffen 12/13/2024 4469 / [id number] / Violet Scientific Steffen Fineline Ii Sterox Ez 1.7mm 52cm Bipolar Active Fixation Screw 4470 - [id number] - [id number] Implanted:Qty: 1 on 04/28/2023 by Kody Delvalle MD PhD at [facility] [place] [facility] Lead Right: Ventricle [employer] Steffen 03/07/2025 4470 / [id number] / Violet Scientific C.R.M. Accolade Latitude Nxt Pacesafe Easyview 4.45x5.02cm 2 Chamber Is1 L311 - [id number] - [id number] Implanted:Qty: 1 on 04/28/2023 by Kody Delvalle MD PhD at [facility] [place] [facility] Pacemaker Left: Chest Wall Violet [employer] C.R.M. 10/14/2023 L311 / [id number] / Boyer Lifesciences Valve Heart 23mm Jose 3 Transcatheter [id number] - [id number] - [id number] Implanted:Qty: 1 on 04/26/2023 by Roosevelt Rudd MD PhD at [facility] [place] [facility] Prosthetic Valve Right: Aortic Valve [employer] 01/07/2026 4660TBC4 3A / [id number] / [id number] Sheldon Vascular Device Clsr Perclose Prostyle Sut-Mediatd Closure-Repair Sys 37031-45 - [id number] - [id number] Implanted:Qty: 1 on 04/26/2023 by Roosevelt Rudd MD PhD at [facility] [place] [facility] Vascular Closure Device Right: Common Femoral Artery [employer]on V[employer] 11/24/2024 23983-76 / [id number] / [id number] Sheldon Vascular Device Clsr Perclose Prostyle Sut-Mediatd Closure-Repair Sys 39253-43 - [id number] - [id number] Implanted:Qty: 1 on 04/26/2023 by Roosevelt Rudd MD PhD at [facility] [place] [facility] Vascular Closure Device Right: Common Femoral Artery [employer] 11/24/2024 96671-15 / [id number] / [id number] Insurance MEDICARE [employer] MEDICARE FOR [place] [address] MEDICARE FOR LIFE [place] [address] MEDICARE FOR LIFE Advance Directives For more information, please contact: [phone] * Full Code (Latest Code Status on File) Date Activated Date Inactivated Comments 04/26/2023 1:31 PM 04/29/2023 8:21 PM Care Teams Meat Lugger Relationship Specialty Start Date End Date Socorro Cox MD [address] [address] PCP - General 12/31/14 Doug Rosario MD [facility] [address] Consulting Physician Cardiology 04/29/23 Kody Delvalle MD PhD [address] [address] Referring Physician Cardiology 04/29/23
--- OUTSIDE RECORDS SUMMARY | 2024-10-03 11:51 | XMS_ITS | Clinical Summary ---
Author Organization [facility] Address [address] [place] [address] Care Team Providers Care Shell Trim Operator Name Role Phone Socorro Cox MD Primary Care Provider Source Comments [facility],non-owned Affiliates and Associated Physician Practices is amultiple site organization consisting of ambulatory clinics and hospital sitesin [place], [place], [place] and [place]. This disclosure is being madepursuant to the Care Everywhere program and may not contain all information available regarding this patient. Last updated 17.[facility] Allergies No known active allergies Medications * [...] on file Legal Sex Female 6:24 AM COMPUTER TESTER Gender Identity Not on file Sexual Orientation Not on file Last Filed Vital Signs Vital Sign Reading Time Taken Comments Blood Pressure 149/89 02/04/2014 12:52 PM COMPUTER TESTER Pulse 67 02/04/2014 12:52 PM COMPUTER TESTER Temperature 36.4 C (97.6 F) 02/04/2014 10:37 AM COMPUTER TESTER Respiratory Rate 20 02/04/2014 10:37 AM COMPUTER TESTER Oxygen Saturation 100% 02/04/2014 10:37 AM COMPUTER TESTER Inhaled Oxygen Concentration - - Weight 64.9 kg (143 lb) 02/04/2014 10:37 AM COMPUTER TESTER Height 160 cm (5' 2.99) 02/04/2014 10:37 AM COMPUTER TESTER Body Mass Index 25.34 02/04/2014 10:37 AM COMPUTER TESTER Plan of Treatment Health Maintenance Due Date [...] 5:21 PM 03/07/2010 6:29 AM Care Teams Shell Trim Operator Relationship Specialty Start Date End Date Socorro Cox MD [address] [place] [id number] PCP - General Internal Medicine 04/29/19
--- OUTSIDE RECORDS SUMMARY | 2024-10-03 11:51 | XMS_ITS | Encounter Summary ---
Author Organization [facility] Address [address] [place] [address] Care Team Providers Care Auto Dealer Name Role Phone Socorro Cox MD Primary Care Provider Encounter Details Date Type Department Care Team (Late st Contact Info) Description 04/11/2018 Lab Requisition [facility] DermPath Lab [address] [facility] [place] [id number] José Miguel [place] [address] Social History Tobacco Use Types Packs/Day Years Used Date Smoking Tobacco: Never Alcohol Use Standard Drinks/Week Comments Yes 0 (1 standard drink = 0.6 oz pur e alcohol) Drinks rarely, socially. Comments Unknown Sex and Gender Information Value Date Recorded Sex Assigned at Not on file Legal Sex Female 6:24 AM LANDSCAPE MANAGEMENT TECHNICIAN Gender Identity Not on file Sexual Orientation Not on file documented as of this encounter Plan of Treatment Not on file documented as of this encounter Procedures Procedure Name Priority Date/Time Associated Diagnosis Comments DERMATOPATHOLOGY Routine 04/10/2018 12:0 0 AM LANDSCAPE MANAGEMENT TECHNICIAN documented in this encounter Results * DERMATOPATHOLOGY (04/10/2018 12:00 AM LANDSCAPE MANAGEMENT TECHNICIAN) Case Report Dermatopathology Report Case: [id number] Authorizing Provider: José Miguel Robert MD Collected: 04/10/2018 12:00 AM Pathologist: Reinaldo Varghese MD Received: 04/11/2018 11:34 AM Specimen: Skin, vertex scalp 2:22 PM [facility] DERMATOPATHOLOGY LABORATORY Final Diagnosis Specimen A. SKIN, vertex scalp: DERMAL SCAR (L90.5) (see microscopic description and comment) 2:22 PM [facility] DERMATOPATHOLOGY LABORATORY at 1422 LANDSCAPE MANAGEMENT TECHNICIAN Clinical History R/O ISK, BCC, SCC, scar. 2:22 PM [facility] DERMATOPATHOLOGY LABORATORY Gross Description Specimen A: Received is one formalin filled container labeled with the patient's name and designated vertex scalp. The specimen consists of a shave biopsy measuring [id number]. Jar 0. 2:22 PM [facility] DERMATOPATHOLOGY LABORATORY Microscopic Description Specimen A. SKIN, vertex scalp: There are fibroblasts and collagen bundles oriented parallel to the skin surface with elongated blood vessels, some of which are oriented perpendicular to the skin surface. There is no evidence of epithelial dysplasia or malignancy in multiple deeper sections examined. 2:22 PM [facility] DERMATOPATHOLOGY LABORATORY Disclaimer An external and internal positive and negative controls are appropriate for the histochemical, immunohistochemical and immunofluorescence stain(s) in this case (if any), except where stated explicitly. The performance characteristics of the stain(s) cited in this report were developed and its performance characteristic determined by the Dermatopathology Laboratory at [facility], directed by Dr. Alejandro Varghese. These tests need not be, and therefore are not, approved by the [place] Food and Drug Administration. The tests are used for clinical purposes. Billing Codes Specimen Charges Stain Charges 80005 1 2:22 PM [facility] DERMATOPATHOLOGY LABORATORY Embedded Images 2:22 PM [facility] DERMATOPATHOLOGY LABORATORY Pathology/Cytolog y TISSUE SPECIMEN FROM SKIN / Unknown 04/10/2018 04/11/2018 11:34 AM LANDSCAPE MANAGEMENT TECHNICIAN José Miguel Robert MD LAB - PATHOLOGY/CYTOLOGY ORD ERABLES Final Result DERMATOPATHOLOGY LABORATORY [facility] - Department of Dermatology [address] [place] [address], 5th Floor Lab [address] [phone] documented in this encounter Visit Diagnoses Not on filedocumented in this encounter Care Teams Auto Dealer Relationship Specialty Start Date End Date Socorro Cox MD [address] [place] [address] [phone] PCP - General Internal Medicine 04/29/19 documented as of this encounter
[2024-10-03 12:07] VITALS: BP 139/84; PULSE 68; RESP 19; O2SAT 98
== END 2024-10-03 12:13 | disposition home or self-care (01) ==
PROVIDERS: Emergency Provider Emergency Medicine
DX: M54.41 Lumbago with sciatica, right side (principal); I10 Essential (primary) hypertension; I35.0 Nonrheumatic aortic (valve) stenosis; E78.5 Hyperlipidemia, unspecified; K58.9 Irritable bowel syndrome, unspecified; N28.9 Disorder of kidney and ureter, unspecified; F41.9 Anxiety disorder, unspecified; F32.A Depression, unspecified; Z90.49 Acquired absence of other specified parts of digestive tract; Z79.899 Other long term (current) drug therapy
CPT/HCPCS: 99283

== ENCOUNTER 2024-10-25 10:13 | Outpatient (CLI) | payer MEDICARE, OTHER, SELFPAY ==
--- NOTE | ~2024-10-25 | XR_ITS ---
XR lumbar spine 6V w bending 10/25/2024 10:51 Indication: Hip pain. Procedure: 7 views lumbar spine Comparison: No prior studies for comparison. Findings: There is disc narrowing at all lumbar levels. There is grade 1 degenerative spondylolisthes is at L4-5 and L5-S1. No acute fracture or traumatic malalignment. There is levocurvature of the spin e at the thoracolumbar junction. There is atherosclerosis. There are cholecystectomy clips. There is facet hypertrophy at L3-4 through L5-S1. Impression: 1: Severe lumbar spondylosis. Reviewed, dictated and finalized at location A. Impression: 1: Severe lumbar spondylosis.
--- OUTSIDE RECORDS SUMMARY | 2024-10-25 10:22 | XMS_ITS | Clinical Summary ---
Author Organization [facility] Address [address] [address] Care Team Providers Care Beef Tagger Name Role Phone Socorro Cox MD Primary Care Provider Source Comments [facility],non-owned Affiliates and Associated Physician Practices is amultiple site organization consisting of ambulatory clinics and hospital sitesin [place], [place], [place] and [place]. This disclosure is being madepursuant to the Care Everywhere program and may not contain all information available regarding this patient. Last updated 17.[facility] Allergies No known active allergies Medications * [...] on file Legal Sex Female 6:24 AM MASTER CONTROL OPERATOR Gender Identity Not on file Sexual Orientation Not on file Last Filed Vital Signs Vital Sign Reading Time Taken Comments Blood Pressure 149/89 02/04/2014 12:52 PM MASTER CONTROL OPERATOR Pulse 67 02/04/2014 12:52 PM MASTER CONTROL OPERATOR Temperature 36.4 C (97.6 F) 02/04/2014 10:37 AM MASTER CONTROL OPERATOR Respiratory Rate 20 02/04/2014 10:37 AM MASTER CONTROL OPERATOR Oxygen Saturation 100% 02/04/2014 10:37 AM MASTER CONTROL OPERATOR Inhaled Oxygen Concentration - - Weight 64.9 kg (143 lb) 02/04/2014 10:37 AM MASTER CONTROL OPERATOR Height 160 cm (5' 2.99) 02/04/2014 10:37 AM MASTER CONTROL OPERATOR Body Mass Index 25.34 02/04/2014 10:37 AM MASTER CONTROL OPERATOR Plan of Treatment Health Maintenance Due Date [...] 5:21 PM 03/07/2010 6:29 AM Care Teams Beef Tagger Relationship Specialty Start Date End Date Socorro Cox MD [address] [place] [phone] PCP - General Internal Medicine 04/29/19
--- OUTSIDE RECORDS SUMMARY | 2024-10-25 10:22 | XMS_ITS | Encounter Summary ---
Author Organization [facility] Address [address] [place] [place] [address] Care Team Providers Care Matte Cutter Name Role Phone Socorro Cox MD Primary Care Provider [phone] Encounter Details Date Type Department Care Team (Late st Contact Info) Description 04/11/2018 Lab Requisition [facility] DermPath Lab [address] [place] [id number] José [place] [address] Social History Tobacco Use Types Packs/Day Years Used Date Smoking Tobacco: Never Alcohol Use Standard Drinks/Week Comments Yes 0 (1 standard drink = 0.6 oz pur e alcohol) Drinks rarely, socially. Comments Unknown Sex and Gender Information Value Date Recorded Sex Assigned at Not on file Legal Sex Female 6:24 AM AUTOMATIC FOLDER SEAMER Gender Identity Not on file Sexual Orientation Not on file documented as of this encounter Plan of Treatment Not on file documented as of this encounter Procedures Procedure Name Priority Date/Time Associated Diagnosis Comments DERMATOPATHOLOGY Routine 04/10/2018 12:0 0 AM AUTOMATIC FOLDER SEAMER documented in this encounter Results * DERMATOPATHOLOGY (04/10/2018 12:00 AM AUTOMATIC FOLDER SEAMER) Case Report Dermatopathology Report Case: [id number] Authorizing Provider: José Miguel Robert MD Collected: 04/10/2018 12:00 AM Pathologist: Reinaldo Varghese MD Received: 04/11/2018 11:34 AM Specimen: Skin, vertex scalp 2:22 PM [facility] DERMATOPATHOLOGY LABORATORY Final Diagnosis Specimen A. SKIN, vertex scalp: DERMAL SCAR (L90.5) (see microscopic description and comment) 2:22 PM [facility] DERMATOPATHOLOGY LABORATORY at [address] AUTOMATIC FOLDER SEAMER Clinical History R/O ISK, BCC, SCC, scar. 2:22 PM [facility] DERMATOPATHOLOGY LABORATORY Gross Description Specimen A: Received is one formalin filled container labeled with the patient's name and designated vertex scalp. The specimen consists of a shave biopsy measuring [id number]. Jar 0. 2:22 PM [facility] DERMATOPATHOLOGY LABORATORY Microscopic Description Specimen A. SKIN, vertex scalp: There are fibroblasts and collagen bundles oriented parallel to the skin surface with elongated blood vessels, some of which are oriented perpendicular to the skin surface. There is no evidence of epithelial dysplasia or malignancy in multiple deeper sections examined. 2:22 PM [facility] DERMATOPATHOLOGY LABORATORY Disclaimer An external and internal positive and negative controls are appropriate for the histochemical, immunohistochemical and immunofluorescence stain(s) in this case (if any), except where stated explicitly. The performance characteristics of the stain(s) cited in this report were developed and its performance characteristic determined by the Dermatopathology Laboratory at [facility], directed by Dr. Alejandro Varghese. These tests need not be, and therefore are not, approved by the [place] Food and Drug Administration. The tests are used for clinical purposes. Billing Codes Specimen Charges Stain Charges 76828 1 2:22 PM [facility] DERMATOPATHOLOGY LABORATORY Embedded Images 2:22 PM [facility] DERMATOPATHOLOGY LABORATORY Pathology/Cytolog y TISSUE SPECIMEN FROM SKIN / Unknown 04/10/2018 04/11/2018 11:34 AM AUTOMATIC FOLDER SEAMER José Miguel Robert MD LAB - PATHOLOGY/CYTOLOGY ORD ERABLES Final Result DERMATOPATHOLOGY LABORATORY [facility] - Department of Dermatology [address] [place] [address], 5th Floor Lab [address] [phone] documented in this encounter Visit Diagnoses Not on filedocumented in this encounter Care Teams Matte Cutter Relationship Specialty Start Date End Date Socorro Cox MD [address] [place] [address] [phone] PCP - General Internal Medicine 04/29/19 documented as of this encounter
--- OUTSIDE RECORDS SUMMARY | 2024-10-25 10:22 | XMS_ITS | Encounter Summary ---
Author Organization [facility] Address [address] [place] [address] Care Team Providers Care Principal Account Clerk Name Role Phone Socorro Cox MD Primary Care Provider [phone] Encounter Details Date Type Department Care Team (Late st Contact Info) Description 09/09/2020 Lab Requisition [facility] DermPath Lab [address] [place] [address] José Miguel Robert MD [address] [place] [id number] Social History Tobacco Use Types Packs/Day Years Used Date Smoking Tobacco: Never Alcohol Use Standard Drinks/Week Comments Yes 0 (1 standard drink = 0.6 oz pur e alcohol) Drinks rarely, socially. Comments Unknown Sex and Gender Information Value Date Recorded Sex Assigned at Not on file Legal Sex Female 6:24 AM CONTRACT ENGINEER Gender Identity Not on file Sexual Orientation Not on file documented as of this encounter Plan of Treatment Not on file documented as of this encounter Procedures Procedure Name Priority Date/Time Associated Diagnosis Comments DERMATOPATHOLOGY Routine 09/08/2020 12:0 0 AM CDT documented in this encounter Results * DERMATOPATHOLOGY (09/08/2020 12:00 AM CDT) Case Report Dermatopathology Report Case: [id number] Authorizing Provider: José Miguel Robert MD Collected: 09/08/2020 12:00 AM Ordering Location: [facility] DermPath Lab Received: 09/09/2020 01:12 PM [...] of a shave biopsy (2 pieces) measuring [id number] & [id number]. Jar 0. 12:33 PM CDT DERMATOPATHOLOGY LABORATORY [...] characteristic determined by the Dermatopathology Laboratory at [facility], directed by Dr. Alejandro Varghese. These tests need not be, and therefore are not, approved by the [place] Food and Drug Administration. The tests are used for clinical purposes. Billing Codes Specimen Charges Stain Charges 68376 1 1 12:33 PM CDT DERMATOPATHOLOGY LABORATORY Embedded Images 12:33 PM CDT DERMATOPATHOLOGY LABORATORY Pathology/Cytolog y TISSUE SPECIMEN FROM SKIN / Unknown 09/08/2020 09/09/2020 1:12 PM CDT us José Miguel Robert MD LAB - PATHOLOGY/CYTOLOGY ORD ERABLES Final Result DERMATOPATHOLOGY LABORATORY [facility] - Department of Dermatology [address], [address] [phone] documented in this encounter Visit Diagnoses Not on filedocumented in this encounter Care Teams Principal Account Clerk Relationship Specialty Start Date End Date Socorro Cox MD [address] [phone] PCP - General Internal Medicine 04/29/19 documented as of this encounter
--- OUTSIDE RECORDS SUMMARY | 2024-10-25 10:22 | XMS_ITS | Referral Summary ---
Author Organization [facility] Address [address] [place] [address] Care Team Providers Care Herb Doctor Name Role Phone Socorro Cox MD Primary Care Provider [phone] Doug Rosario MD Unavailable [phone] oKdy Delvalle MD PhD Unavailable [phone] Encounters Date Type Department Care Team Description 09/04/2024 Orders Only [facility] Cardiology [facility] Medical Office Building [address] [place] [address] Kody Delvalle MD PhD 08/13/2024 Telephone [facility] Cardiology [address] [place] [address] Medicine 8th [place] [address] [place] [address] Raquel Corona 08/13/2024 Telephone [facility] Cardiology [address] [place] [address] 8th [place] [address] [place] [address] Raquel Corona 08/12/2024 11:15 AM CDT Office Visit [facility] Cardiology [address] [place] [address] 8th [place] [address] [place] [phone] Kody Delvalle MD PhD Adjustment and management of cardiac pacemaker (Primary Dx); Complete heart block (HCC) 08/12/2024 10:45 AM CDT Ancillary Procedure [facility] Cardiology [address] [facility] Medicine 8th [place] [address] [place] [address] CHB (complete heart block) (HCC) (Primary Dx); [...] ons:Allergic Rhinitis Take 1 capsule by mouth tube lancer before breakfast Active aspirin 81 mg chewable [...] mg capsule Active pyrroloquinolin e quinone disod ([id number] UINOLINE QUINONE ORAL) Active multivitamin with iron [...] 04/26/2023 Assessment & Plan (04/26/2023 1:23 PM ORDER MANAGEMENT SPECIALIST): S/p TAVR on 04/26 DAPT for [...] on file Legal Sex Female 11:43 PM ORDER MANAGEMENT SPECIALIST Gender Identity Female 05/04/2022 5:47 PM ORDER MANAGEMENT SPECIALIST Sexual Orientation Not on file Last Filed Vital Signs Vital Sign Reading Time Taken Comments Blood Pressure 131/89 08/12/2024 11:17 AM CDT Pulse 97 08/12/2024 11:17 AM CDT Temperature 37 C (98.6 F) 04/29/2023 8:00 AM ORDER MANAGEMENT SPECIALIST Respiratory Rate 17 04/29/2023 8:00 AM ORDER MANAGEMENT SPECIALIST Oxygen Saturation 95% 08/12/2024 11:17 AM CDT Inhaled Oxygen Concentration - - Weight 58.6 kg (129 lb 3.2 oz) 08/12/2024 11:17 AM CDT Height 160 cm (5' 3) 08/12/2024 11:17 AM CDT Body Mass Index 22.89 08/12/2024 11:17 AM CDT Plan of Treatment Not on file Medical Devices Implanted Type Area Poultry Service Technician Device Identifier Shelf Expiration Date Model / Serial / Lot [employer] Angio-Seal Vip 6fr Closere Device [id number] - [id number] - [id number] Implanted:Qty: 1 on 04/26/2023 by Roosevelt Rudd MD PhD at [facility] Collagen Left: Common Femoral Artery [employer] 01/25/2024 [id number] / [id number] / [id number] [employer] Steffen Fineline Ii Sterox Ez 7fr 45cm Bipolar Active Fixation Atrium 4469 - [id number] - [id number] Implanted:Qty: 1 on 04/28/2023 by Kody Delvalle MD PhD at [facility] Lead Right: Atria [employer] Steffen 12/13/2024 4469 / [id number] / [employer] Steffen Fineline Ii Sterox Ez 1.7mm 52cm Bipolar Active Fixation Screw 4470 - [id number] - [id number] Implanted:Qty: 1 on 04/28/2023 by Kody Delvalle MD PhD at [facility] Lead Right: Ventricle [employer] Steffen 03/07/2025 4470 / [id number] / [employer] C.[employer].M. Accolade Latitude Nxt Pacesafe Easyview 4.45x5.02cm 2 Chamber Is1 L311 - [id number] - [id number] Implanted:Qty: 1 on 04/28/2023 by Kody Delvalle MD PhD at [facility] Pacemaker Left: Chest Wall [employer] C.R.M. 10/14/2023 L311 / [id number] / [employer] Valve Heart 23mm Jose 3 Transcatheter [id number] - [id number] - [id number] Implanted:Qty: 1 on 04/26/2023 by Roosevelt Rudd MD PhD at [facility] Prosthetic Valve Right: Aortic Valve [employer] 01/07/2026 [id number] / [id number] / [id number] [employer] Device Clsr Perclose Prostyle Sut-Mediatd Closure-Repair Sys 27412-12 - [id number] - [id number] Implanted:Qty: 1 on 04/26/2023 by Roosevelt Rudd MD PhD at [facility] Vascular Closure Device Right: Common Femoral Artery [employer] 11/24/2024 65766-58 / [id number] / [id number] [employer] Device Clsr Perclose Prostyle Sut-Mediatd Closure-Repair Sys 12669-84 - [id number] - [id number] Implanted:Qty: 1 on 04/26/2023 by Roosevelt Rudd MD PhD at [facility] Vascular Closure Device Right: Common Femoral Artery [employer] 11/24/2024 30009-26 / [id number] / [id number] Procedures Procedure Name Priority Date/Time Associated Diagnosis Comments DEVICE CHECK - REMOTE Routine 09/04/2024 6:29 PM CDT DEVICE CHECK - IN OFFICE Routine 08/12/2024 10:55 AM CDT Fitting or adjustment of cardiac pacemaker CHB (complete heart block) (HCC) from Last 3 Months Results * DEVICE CHECK - REMOTE (09/04/2024 6:29 PM CDT) Anatomical Region Laterality Modality Other 09/04/2024 6:29 PM CDT Narrative 10/10/2024 5:38 PM CDT Interpretation Summary: Battery and Leads (BL) Normal parameters noted on battery and lead(s) --- 6.5 years remaining (this is an estimate based on prior usage) Presenting Rhythm (WA) Atrial Sensing-Ventricular Pacing (-SUPERVISOR CHEMICAL) --- rate 95 Arrhythmic events (AE) No new arrhythmic events in monitoring period Transmission Information (TI) Device Summary Report Procedure Note Kody Delvalle MD PhD - 10/10/2024 Interpretation Summary: Battery and Leads (BL) Normal parameters noted on battery and lead(s) --- 6.5 years remaining(this is an estimate based on prior usage) Presenting Rhythm (WA) Atrial Sensing-Ventricular Pacing (-SUPERVISOR CHEMICAL) --- rate 95 Arrhythmic events (AE) No new arrhythmic events in monitoring period Transmission Information (TI) Device Summary Report Kody Delvalle MD PhD [facility] [place] OC[facility] Final Result * DEVICE CHECK - IN OFFICE (08/12/2024 10:55 AM CDT) Anatomical Region Laterality Modality Other 08/12/2024 2:00 AM CDT Narrative 10/10/2024 5:37 PM CDT Interpretation Summary: Battery and Leads (BL) Normal parameters noted on battery and lead(s) --- battery longevity estimate: 6.5 yrs Presenting Rhythm (WA) Atrial Sensing-Ventricular Pacing (-SUPERVISOR CHEMICAL) --- Underlying rhythm: SUPERVISOR CHEMICAL 40s Arrhythmic events (AE) Atrial fibrillation and/or flutter with controlled ventricular rate --- 2 episodes of ATR noted in September and Nov 2023, lasting 2 sec, Avg V rate 79-85 bpm, morphology shows Atrial flutter Procedure Note Kody Delvalle MD PhD - 10/10/2024 Interpretation Summary: Battery and Leads (BL) Normal parameters noted on battery and lead(s) --- battery longevityestimate: 6.5 yrs Presenting Rhythm (WA) Atrial Sensing-Ventricular Pacing (-SUPERVISOR CHEMICAL) --- Underlying rhythm: SUPERVISOR CHEMICAL 40s Arrhythmic events (AE) Atrial fibrillation and/or flutter with controlled ventricular rate --- 2episodes of ATR noted in September and Nov 2023, lasting 2 sec, Avg V [id number] bpm, morphology shows Atrial flutter us Kody Delvalle MD PhD [facility] [place] [facility] Final Result from Last 3 Months Insurance MEDICARE FOR LIFE MEDICARE FOR LIFE MEDICARE FOR LIFE MEDICARE FOR LIFE Advance Directives For more information, please contact: [phone] * Full Code (Latest Code Status on File) Date Activated Date Inactivated Comments 04/26/2023 1:31 PM 04/29/2023 8:21 PM Care Teams Herb Doctor Relationship Specialty Start Date End Date Socorro Cox MD [facility] [employer] [address] [address] PCP - General 12/31/14 Doug Rosario MD [facility] [employer] [address] [address] Consulting Physician Cardiology 04/29/23 Kody Delvalle MD PhD [facility] [employer] [address] [address] Referring Physician Cardiology 04/29/23
--- OUTSIDE RECORDS SUMMARY | 2024-10-25 10:22 | XMS_ITS | Clinical Summary ---
Author Organization [facility] Address [address] [place] [address] Care Team Providers Care Senior Clinical Data Manager Name Role Phone Socorro Cox MD Primary Care Provider [phone] Doug Rosario MD Unavailable Kody Delvalle MD [...] ons:Allergic Rhinitis Take 1 capsule by mouth search planner before breakfast Active aspirin 81 mg chewable [...] mg capsule Active pyrroloquinolin e quinone disod ([id number] UINOLINE QUINONE ORAL) Active multivitamin with iron [...] 04/26/2023 Assessment & Plan (04/26/2023 1:23 PM SENIOR CARE PROVIDER): S/p TAVR on 04/26 DAPT for one month, then ASA 81 mg daily indefinitely PT/OT evaluation tomorrow AM CXR, EKG, TTE and labs tomorrow AM Monitor on telemetry for any evidence of AV block Encounter for examination fo r normal comparison and control in clinical research program 04/07/2023 Nonrheumatic aortic valve stenosis 08/25/2020 Encounters Date Type Department Care Team Description 09/04/2024 Orders Only [facility] [address] [facility] [address] [place] [address] Kody Delvalle MD PhD 08/13/2024 Telephone [facility] [address] [facility] 8th [place] [address] [place] [address] Raquel Corona 08/13/2024 Telephone [facility] [address] [facility] 8th [place] [address] [place] [address] Raquel Corona 08/12/2024 11:15 AM CDT Office Visit [facility] [address] [place] [address] 8th [place] [address] [place] [address] Kody Delvalle MD PhD Adjustment and management of cardiac pacemaker (Primary Dx); Complete heart block (HCC) 08/12/2024 10:45 AM CDT Ancillary Procedure [facility] [address] [place] [address] 8th [place] [address] [place] [address] CHB (complete heart block) (HCC) (Primary Dx); [...] on file Legal Sex Female 11:43 PM SENIOR CARE PROVIDER Gender Identity Female 05/04/2022 5:47 PM SENIOR CARE PROVIDER Sexual Orientation Not on file Obstetrics History Last Filed Vital Signs Vital Sign Reading Time Taken Comments Blood Pressure 131/89 08/12/2024 11:17 AM CDT Pulse 97 08/12/2024 11:17 AM CDT Temperature 37 C (98.6 F) 04/29/2023 8:00 AM SENIOR CARE PROVIDER Respiratory Rate 17 04/29/2023 8:00 AM SENIOR CARE PROVIDER Oxygen Saturation 95% 08/12/2024 11:17 AM CDT [...] 10/28/2014 09/02/2014 Fall Risk Assessment 04/29/2024 04/29/2023 Influenza Vaccine (#1) 2024 , 01/03/2024, 12/28/2022, Additional history exists Zoster Vaccine Completed 05/08/2019, 03/05/2019 Medical Devices Implanted Type Area Assessment Specialist Device Identifier Shelf Expiration Date Model / Serial / Lot [employer] Angio-Seal Vip 6fr Closere Device [id number] - [id number] - [id number] Implanted:Qty: 1 on 04/26/2023 by Roosevelt Rudd MD PhD at [facility] Collagen Left: Common Femoral Artery [employer] 01/25/2024 [id number] / [id number] / [id number] [employer] Fineline Ii Sterox Ez 7fr 45cm Bipolar Active Fixation Atrium 4469 - [id number] - [id number] Implanted:Qty: 1 on 04/28/2023 by Kody Delvalle MD PhD at [facility] Lead Right: Atria [employer] 12/13/2024 4469 / [id number] / [employer] Fineline Ii Sterox Ez 1.7mm 52cm Bipolar Active Fixation Screw 4470 - [id number] - [id number] Implanted:Qty: 1 on 04/28/2023 by Kody Delvalle MD PhD at [facility] Lead Right: Ventricle [employer] 03/07/2025 4470 / [id number] / [employer] C.R.M. Accolade Latitude Nxt Pacesafe Easyview 4.45x5.02cm 2 Chamber Is1 L311 - [id number] - [id number] Implanted:Qty: 1 on 04/28/2023 by Kody Delvalle MD PhD at [facility] Pacemaker Left: Chest Wall [employer] C.R.M. 10/14/2023 L311 / [id number] / [employer] Valve Heart 23mm Jose 3 Transcatheter [id number] - [id number] - [id number] Implanted:Qty: 1 on 04/26/2023 by Roosevelt Rudd MD PhD at [facility] Prosthetic Valve Right: Aortic Valve [employer] 01/07/2026 [id number] / [id number] / [id number] [employer] Device Clsr Perclose Prostyle Sut-Mediatd Closure-Repair Sys 90705-58 - [id number] - [id number] Implanted:Qty: 1 on 04/26/2023 by Roosevelt Rudd MD PhD at [facility] Vascular Closure Device Right: Common Femoral Artery [employer] 11/24/2024 10671-38 / [id number] / [id number] [employer] Device Clsr Perclose Prostyle Sut-Mediatd Closure-Repair Sys 70847-40 - [id number] - [id number] Implanted:Qty: 1 on 04/26/2023 by Roosevelt Rudd MD PhD at [facility] Vascular Closure Device Right: Common Femoral Artery [employer] 11/24/2024 74632-93 / [id number] / [id number] Procedures Procedure Name Priority Date/Time Associated Diagnosis [...] estimate based on prior usage) Presenting Rhythm (NH) Atrial Sensing-Ventricular Pacing (-TRACK REPAIR WORKER) --- rate 95 Arrhythmic events (AE) No new arrhythmic events in monitoring period Transmission Information (TI) Device Summary Report Procedure Note Kody Delvalle MD PhD - 10/10/2024 Interpretation Summary: Battery and Leads (BL) Normal parameters noted on battery and lead(s) --- 6.5 years remaining(this is an estimate based on prior usage) Presenting Rhythm (NH) Atrial Sensing-Ventricular Pacing (-TRACK REPAIR WORKER) --- rate 95 Arrhythmic events (AE) No new arrhythmic events in monitoring period Transmission Information (TI) Device Summary Report us Kody Delvalle MD PhD [facility] OCED[facility] Final Result * DEVICE CHECK - IN OFFICE (08/12/2024 10:55 AM CDT) Anatomical Region Laterality Modality Other 08/12/2024 2:00 AM CDT Narrative 10/10/2024 5:37 PM CDT Interpretation Summary: Battery and Leads (BL) Normal parameters noted on battery and lead(s) --- battery longevity estimate: 6.5 yrs Presenting Rhythm (NH) Atrial Sensing-Ventricular Pacing (-TRACK REPAIR WORKER) --- Underlying rhythm: TRACK REPAIR WORKER 40s Arrhythmic events (AE) Atrial fibrillation and/or flutter with controlled ventricular rate --- 2 episodes of ATR noted in September and Nov 2023, lasting 2 sec, Avg V rate 79-85 bpm, morphology shows Atrial flutter Procedure Note Kody Delvalle MD PhD - 10/10/2024 Interpretation Summary: Battery and Leads (BL) Normal parameters noted on battery and lead(s) --- battery longevityestimate: 6.5 yrs Presenting Rhythm (NH) Atrial Sensing-Ventricular Pacing (-TRACK REPAIR WORKER) --- Underlying rhythm: TRACK REPAIR WORKER 40s Arrhythmic events (AE) Atrial fibrillation and/or flutter with controlled ventricular rate --- 2episodes of ATR noted in September and Nov 2023, lasting 2 sec, Avg V [id number] bpm, morphology shows Atrial flutter Kody Delvalle MD PhD [facility] [place] [facility] Final Result from Last 3 Months Insurance [place] [address] [place] [address] MEDICARE FOR LIFE MEDICARE FOR LIFE Advance Directives For more information, please contact: [phone] * Full Code (Latest Code Status on File) Date Activated Date Inactivated Comments 04/26/2023 1:31 PM 04/29/2023 8:21 PM Care Teams Senior Clinical Data Manager Relationship Specialty Start Date End Date Socorro Cox MD [address] [facility] [address] [place] [address] PCP - General 12/31/14 Doug Rosario MD [facility] [facility] [address] [place] [address] Consulting Physician Cardiology 04/29/23 Kody Delvalle MD PhD [facility] [facility] [address] [place] [address] Referring Physician Cardiology 04/29/23
== END 2024-10-25 10:14 | disposition home or self-care (01) ==
PROVIDERS: PCP Internal Medicine; Visit Provider Chiropractor
DX: M43.06 Spondylolysis, lumbar region (principal)
CPT/HCPCS: 72114